=== PATIENT | female | born 1945 | race Caucasian/White ===

== ENCOUNTER 2016-07-06 12:27 | Observation (INO) | payer MEDICARE ==
[2016-07-06] VITALS (9 sets, daily range): BP systolic 147–219; BP diastolic 77–103; PULSE 85–91; RESP 16–20; TEMP 98–98.4; O2SAT 94–96
[~2016-07-06] VITALS: Ht 160 cm; Wt 74.9 kg
[~2016-07-06 12:27] MED LIST: ACET325S8 PO; ALBU6.7H INH; AMLO5 PO; ASPI325T PO; BUSP5 PO; CYMB60CA PO; FLUT50I NASAL; GLIM4 PO; LISI40TA PO; LORTA5 PO; LOVA20TA PO; MECL25 PO; METF-324 PO; METO100T PO; METO50TA PO; MONT5CHW2 CHEW; NEUR600T PO; PERC10TA27 PO; RIVA20 PO; Z.0.WALKERFRONT
[2016-07-06] MEDS ORDERED: BUSP15TA PO (12:43)
[2016-07-06] MEDS ORDERED: CYMB60CA PO (12:43)
[2016-07-06] MEDS ORDERED: GLIM4TAB PO (12:43)
[2016-07-06] MEDS ORDERED: LOVA10TA PO (12:43)
[2016-07-06] MEDS ORDERED: LISI40TA PO (12:43)
[2016-07-06] MEDS ORDERED: MINO0.1C PO (12:43)
[2016-07-06] MEDS ORDERED: MONT10TA2 PO (12:43)
[2016-07-06] MEDS ORDERED: PERC10TA27 PO (12:43)
[2016-07-06] MEDS ORDERED: METO50TA PO (12:43)
[2016-07-06] MEDS ORDERED: XARE20TA PO (12:43)
[2016-07-06] MEDS ORDERED: GABA300C5 PO (12:43)
--- NOTE | 2016-07-06 12:56 | PD ---
HPI Chief Complaint: Abnormal Results Time Seen by Provider: 12:29 Travel History International Travel<30 days: No Contact w/Intl Traveler<30days: No Traveled to known affect area: No History of Present Illness HPI This 71-year-old female is sent from her skid strapper's office because of high blood sugar and high blood pressure. The patient states that this morning she was extremely lightheaded. She says she was unable to walk straight and was bumping into zelaya. This spell lasted for about half an hour. She does not recall feeling like this before. She has a history of hypertension and is on lisinopril 40 mg daily as well as metoprolol 150 mg daily. She has a history of diabetes and has not tolerated oral medications well. Today she went to the skid strapper to discuss possibly starting insulin. She is not having any chest pain at this time. She does not smoke. She had gone to [facility] month ago because of headaches and had a CAT scan done at that time which she was told was negative. She says that she feels that since that time she's been having some trouble with her speech. PFSH Past Medical History Arthritis: Yes Asthma: Yes Atrial Fibrillation: Yes Cancer: No Cardiac Catheterization: No Cardiovascular Problems: Yes (a-fib) High Cholesterol: Yes Cerebrovascular Accident: Yes (04/2011) Diabetes: Yes Patient Takes Glucophage: No Diminished Hearing: No Endocrine: No Fibromyalgia: Yes Gastrointestinal Disorders: Yes (occas heartburn) GERD: Yes Genitourinary: Yes (OVER ACTIVE BLADDER) Hepatitis: No Hiatal Hernia: No Hypertension: Yes Immune Disorder: Yes (rheumatoid & psoric & osteo arthritis) Musculoskeletal: Yes (arthritis neck and back problems due to arthritis) Neurologic: Yes (tia occ migraines) Psychiatric: No Reproductive: No Respiratory: Yes (asthma) Thyroid Disease: No ?: Not Menopausal: Yes Ovarian Cysts: Yes Past Surgical History Abdominal Surgery: Yes (lap curt) AICD: No Cardiac Surgery: No Cholecystectomy: Yes Coronary Artery Bypass Graft: No Ear Surgery: No Eye Surgery: Yes (CATARACT BOTH EYES FALL 06) Genitourinary Surgery: No Gynecologic Surgery: Yes (hystererctomy) Hysterectomy: Yes Joint Replacement: Yes (Both knees) Neurologic Surgery: Yes Oral Surgery: Yes (tonsillectomy at age 21) Pacemaker: No Thoracic Surgery: No Other Surgery: Yes ( ) Family History Family Myocardial Infarction: No Social History Alcohol Use: No Tobacco Use: No Substance Use: No Allergies-Medications (Allergen,Severity, Reaction): Coded Allergies: Aristocort (Verified Allergy, Severe, ANAPHYLAXIS, 07/06/16) anaphylaxis Cephalosporins (Verified Allergy, Severe, ANAPHYLAXIS, 07/06/16) anaphylaxis Corticosteroids (Verified Allergy, Severe, ANAPHYLAXIS, 07/06/16) anaphylaxis Decadron (Verified Allergy, Severe, ANAPHYLAXIS, 07/06/16) unknown Keflex (Verified Allergy, Severe, ANAPHYLAXIS, 07/06/16) anaphylaxis Lyrica (Verified Allergy, Severe, goes blind, 07/06/16) Aspirin (Verified Allergy, Mild, GI UPSET, 07/06/16) gi upset Contrast Media (Unverified Allergy, Mild, Itching, 07/06/16) has to be pre-medicated first Iodine (Verified Allergy, Mild, Itching, 07/06/16) topical iodine causes itching Pork (Verified Allergy, Mild, Itching, 07/06/16) *MDRO Multi-Drug Resistant Organism (Verified Adverse Reaction, Unknown, ) MRSA PCR Screen positive 03/28/15. Uncoded Allergies: INJECTABLE STEROIDS (Allergy, Severe, Anaphylaxis, 02/03/06) Reported Meds & Prescriptions Reported Meds & Active Scripts Active Reported Singulair (Montelukast Sodium) 10 Mg Tab 10 Mg PO HS Percocet (Oxycodone-Acetaminophen) 10-325 mg Tab 1 Tab PO Q6H PRN Cymbalta DR (Duloxetine HCl) 60 Mg Capdr 60 Mg PO DAILY Xarelto (Rivaroxaban) 20 Mg Tab 20 Mg PO DAILY Lovastatin 10 Mg Tab 10 Mg PO HS Metoprolol Tartrate 50 Mg Tab 50 Mg PO BID Gabapentin 300 Mg Cap 900 Mg PO BID Buspirone (Buspirone HCl) 15 Mg Tab 15 Mg PO DAILY Lisinopril 40 Mg Tab 40 Mg PO DAILY Glimepiride 4 Mg Tab 4 Mg PO HS Take with breakfast or first main meal Minocin (Minocycline HCl) 50 Mg Cap 50 Mg PO DAILY Review of Systems General / Constitutional: No: Fever, Chills Eyes: No: Diploplia, Blurred Vision HENT: Positive: Headaches, Lightheadedness Cardiovascular: No: Chest Pain or Discomfort, Palpitations Respiratory: No: Cough, Shortness of Breath Gastrointestinal: No: Vomiting, Diarrhea Genitourinary: No: Urgency, Frequency Musculoskeletal: No: Myalgias, Arthralgias Skin: No Itching, No Dryness Neurologic: Positive: Weakness, Dizziness, Coordination Problem, No: Change in Mentation Endocrine: No: Polyuria Hematologic/Lymphatic: Positive: Easy Bruising Physical Exam Narrative GENERAL: Well-developed female SKIN: Warm and dry. HEAD: Atraumatic. Normocephalic. EYES: Pupils equal and round. No scleral icterus. No injection or drainage. ENT: No nasal bleeding or discharge. Mucous membranes pink and moist. NECK: Trachea midline. No JVD. CARDIOVASCULAR: Irregular rate and rhythm. No murmur appreciated. RESPIRATORY: No accessory muscle use. Clear to auscultation. Breath sounds equal bilaterally. GASTROINTESTINAL: Abdomen soft, non-tender, nondistended. Hepatic and splenic margins not palpable. MUSCULOSKELETAL: No obvious deformities. No clubbing. No cyanosis. No edema. NEUROLOGICAL: Awake and alert. No obvious cranial nerve deficits. Motor grossly within normal limits. Normal speech. PSYCHIATRIC: Appropriate mood and affect; insight and judgment normal. Data Data Last Documented VS Vital Signs Date Time Temp Pulse Resp B/P Pulse Ox O2 Delivery O2 Flow Rate FiO2 07/06/16 12:35 98.4 91 18 208/98 95 Orders Electrocardiogram (07/06/16 12:49) Complete Blood Count With Diff (07/06/16 12:49) Basic Metabolic Panel (Bmp) (07/06/16 12:49) Troponin I (07/06/16 12:49) Urinalysis - C+S If Indicated (07/06/16 12:49) Magnesium (Mg) (07/06/16 12:49) Insulin Human Regular Inj (Novolin R Inj (07/06/16 13:00) Ct Brain W/O Iv Contrast(Rout) (07/06/16 12:53) Labs Laboratory Tests Test 07/06/16 13:12 White Blood Count 9.7 TH/MM3 Red Blood Count 5.25 MIL/MM3 Hemoglobin 14.5 GM/DL Hematocrit 45.0 % Mean Corpuscular Volume 85.6 FL Mean Corpuscular Hemoglobin 27.7 PG Mean Corpuscular Hemoglobin 32.3 % Concent Red Cell Distribution Width 15.8 % Platelet Count 263 TH/MM3 Mean Platelet Volume 7.3 FL Neutrophils (%) (Auto) 80.4 % Lymphocytes (%) (Auto) 11.8 % Monocytes (%) (Auto) 4.2 % Eosinophils (%) (Auto) 3.2 % Basophils (%) (Auto) 0.4 % Neutrophils # (Auto) 7.9 TH/MM3 Lymphocytes # (Auto) 1.1 TH/MM3 Monocytes # (Auto) 0.4 TH/MM3 Eosinophils # (Auto) 0.3 TH/MM3 Basophils # (Auto) 0.0 TH/MM3 CBC Comment DIFF FINAL Differential Comment Urine pH 6.0 Urine Protein 100 mg/dL Urine Glucose (UA) 500 mg/dL Urine Ketones TRACE mg/dL Urine Occult Blood SMALL Urine Nitrite NEG Urine Bilirubin NEG Urine Leukocyte Esterase NEG Sodium Level 139 MEQ/L Potassium Level 3.5 MEQ/L Chloride Level 101 MEQ/L Carbon Dioxide Level 31.0 MEQ/L Anion Gap 7 MEQ/L Blood Urea Nitrogen 8 MG/DL Creatinine 0.85 MG/DL Estimat Glomerular Filtration 66 ML/MIN Rate Random Glucose 292 MG/DL Calcium Level 8.9 MG/DL Magnesium Level 2.1 MG/DL Troponin I LESS THAN 0.02 NG/ML MDM Medical Decision Making Medical Screen Exam Complete: Yes Emergency Medical Condition: Yes Medical Record Reviewed: Yes Differential Diagnosis Differential includes hypertension, hyperglycemia, TIA Narrative Course Patient had an episode this morning that lasted about a half an hour where she was very lightheaded and was unable to walk straight. This may have represented a TIA. Blood pressure is elevated as well as blood sugar. She indicates aspirin as an allergy. It causes her severe indigestion she says I have not given aspirin in view of this. 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
[2016-07-06] MEDS ORDERED: INSULIN HUMAN REGULAR 1,000 UNITS/10 ML VIAL SQ ONE (13:00)
[2016-07-06 13:22] LABS: AUTOMATED NEUTROPHIL # 7.9 TH/MM3 (1.8-7.7); BASOPHIL % 0.4 % (0.0-2.0); EOSINOPHIL # 0.3 TH/MM3 (0-0.4); EOSINOPHIL % 3.2 % (0.0-4.0); HEMO FLAGS DIFF FINAL; LYMPH % 11.8 % (9.0-44.0); LYMPHOCYTE # 1.1 TH/MM3 (1.0-4.8); MEAN CELL VOLUME 85.6 FL (80.0-100.0); MEAN CORPUSCULAR HEMOGLOBIN 27.7 PG (27.0-34.0); MEAN CORPUSCULAR HGB CONC 32.3 % (32.0-36.0); MONO % 4.2 % (0.0-8.0); NEUT % 80.4 % (16.0-70.0); PLATELET COUNT 263 TH/MM3 (150-450); RED BLOOD COUNT 5.25 MIL/MM3 (4.00-5.30); RED CELL DISTRIBUTION WIDTH 15.8 % (11.6-17.2); WHITE BLOOD COUNT 9.7 TH/MM3 (4.0-11.0)
[2016-07-06 13:28] LABS: CHLORIDE 101 MEQ/L (98-107); POTASSIUM 3.5 MEQ/L (3.5-5.1); SODIUM (NA) 139 MEQ/L (136-145)
[2016-07-06 13:31] LABS: ANION GAP 7 MEQ/L (5-15)
[2016-07-06 13:32] LABS: BLOOD UREA NITROGEN 8 MG/DL (7-18); MAGNESIUM 2.1 MG/DL (1.5-2.5)
[2016-07-06 13:35] LABS: GLOMERULAR FILTRATION RATE 66 ML/MIN (>89)
[2016-07-06 13:37] LABS: BLOOD, URINE SMALL (NEG); GLUCOSE,URINE 500 mg/dL (NEG); KETONE, URINE TRACE mg/dL (NEG); NITRITE,URINE NEG (NEG)
--- NOTE | 2016-07-06 13:37 | RADHPO ---
EXAM DATE/TIME: 07/06/2016 13:19 [facility] COMPARISON: CT BRAIN W/O CONTRAST, December 20, 2014, 18:57. INDICATIONS : Dizziness and unsteady gait. RADIATION DOSE: 59.30 CTDIvol (mGy) MEDICAL HISTORY : Cerebrovascular disease. Hypertension. SURGICAL HISTORY : Cholecystectomy. Hysterectomy.Cataract surgery. Orthopedic surgery. ENCOUNTER: Initial ACUITY: 1 day PAIN SCALE: 0/10 LOCATION: cranial TECHNIQUE: Multiple contiguous axial images were obtained of the head. Using automated exposure control and adj ustment of the mA and/or kV according to patient size, radiation dose was kept as low as reasonably a chievable to obtain optimal diagnostic quality images. FINDINGS: CEREBRUM: The ventricles are normal for age. No evidence of midline shift, mass lesion, hemorrhage or acute in farction. No extra-axial fluid collections are seen. POSTERIOR FOSSA: The cerebellum and brainstem are intact. The 4th ventricle is midline. The cerebellopontine angle i s unremarkable. EXTRACRANIAL: The visualized portion of the orbits is intact. SKULL: The calvaria is intact. No evidence of skull fracture. CONCLUSION: Normal examination for a patient of this age. No significant change has occurred. Jalen Serrano MD on July 06, 2016 at 13:35 Board Certified Radiologist. This report was verified electronically.
[2016-07-06 14:12] LABS: METHOD OF COLLECTION CLEAN CATCH; RBC, URINE 0-3 /hpf (0-3); URINE COLOR YELLOW (YELLW/STRAW); WBC, URINE 0-2 /hpf (0-5)
[2016-07-06 14:13] LABS: COMMENT (UR) CULT NOT INDICATED; CULTURE IF INDICATED CULT NOT INDICATED; SQUAMOUS EPITHELIAL CELL URINE 0-5 /hpf (0-5)
[2016-07-06] MEDS ORDERED: GLUCAGON 1 MG/ML VIAL OTHER PRN (14:15)
[2016-07-06] MEDS ORDERED: ONDANSETRON HCL 4 MG/2 ML VIAL IVP PRN (14:15)
[2016-07-06] MEDS ORDERED: MECLIZINE HCL 25 MG TAB PO ONE (14:15)
[2016-07-06] MEDS ORDERED: SODIUM CHLORIDE 0.9% FLUSH 5 ML FLUSH FLUSH PRN (14:15)
[2016-07-06] MEDS ORDERED: NALOXONE HCL 0.4 MG/ML AMP IV PRN (14:15)
[2016-07-06] MEDS ORDERED: ACETAMINOPHEN 325 MG TAB PO PRN (14:15)
[2016-07-06] MEDS ORDERED: DEXTROSE 50% IN WATER 50 ML VIAL(D50) IV PUSH PRN (14:15)
[2016-07-06] MEDS ORDERED: oxyCODONE/ACETAMINOPHEN 10 MG/325 MG TAB PO PRN (14:30)
[2016-07-06] MEDS ORDERED: cloNIDine HCL 0.1 MG TAB PO ONE (14:30)
[2016-07-06] MEDS ORDERED: ALPRAZolam 0.25 MG TAB PO PRN (14:30)
[2016-07-06] MEDS: SODIUM CHLOR 0.9% 1000 ML INJ 1,000 ML IV SCH (15:32)
--- NOTE | 2016-07-06 16:14 | RADHPO ---
EXAM DATE/TIME: 07/06/2016 16:01 [facility] COMPARISON: CT BRAIN W/O CONTRAST, July 06, 2016, 13:19. INDICATIONS : TIA. Slurred speech. MEDICAL HISTORY : Diabetes mellitus type 2. Hypertension. SURGICAL HISTORY : Cholecystectomy. Total knee replacement, right. ENCOUNTER: Initial ACUITY: 2 day PAIN SCORE: 0/10 LOCATION: cranial TECHNIQUE: Multiplanar, multisequence MRI of the brain was performed without contrast. FINDINGS: CEREBRUM: The ventricles are normal for age. No evidence of midline shift, mass lesion, hemorrhage or acute in farction. No extraaxial fluid collections are seen. The pituitary gland and suprasellar cistern are normal in configuration. WHITE MATTER: Scattered small foci of T2 prolongation in the periventricular and subcortical white matter, nonspeci fic and benign in appearance. POSTERIOR FOSSA: The cerebellum and brainstem are intact. The 4th ventricle is midline. The cerebellopontine angle is unremarkable. The cerebellar tonsils are normal in position. DIFFUSION IMAGING: No focal areas of restricted diffusion are seen. No evidence of acute infarction. EXTRACRANIAL: The visualized portions of the orbits and paranasal sinuses are unremarkable. Minimal occasional flui d in mastoid air cells CONCLUSION: Scattered areas of mild white matter signal abnormality. No acute intracranial findings. Dany Cabral MD on July 06, 2016 at 16:07 Board Certified Radiologist. This report was verified electronically.
[2016-07-06] MEDS: INSULIN ASPART SUPPLEMENTAL SCALE SQ SCH ×2 (16:25→22:00)
[2016-07-06] MEDS: cloNIDine HCL 0.1 MG TAB PO SCH (18:40)
[2016-07-06] MEDS ORDERED: MONTELUKAST SODIUM 10 MG TAB PO SCH (21:00)
[2016-07-06] MEDS ORDERED: PRAVASTATIN SOD 10 MG TAB PO SCH (21:00)
[2016-07-06] MEDS: SODIUM CHLORIDE 0.9% FLUSH 5 ML FLUSH FLUSH SCH (21:00)
[2016-07-06] MEDS: INSULIN DETEMIR 100 UNITS/ML VIAL SQ SCH (21:59)
[2016-07-06] MEDS: MECLIZINE HCL 25 MG TAB PO SCH (22:00)
[2016-07-06] MEDS: GABAPENTIN 300 MG CAP PO SCH (22:00)
[2016-07-06] MEDS: METOPROLOL TARTRATE 50 MG TAB PO SCH (22:01)
[2016-07-07] VITALS: BP 121/68; PULSE 70; RESP 20; TEMP 97.2; O2SAT 91
[2016-07-07] MEDS: SODIUM CHLOR 0.9% 1000 ML INJ 1,000 ML IV SCH ×2 (00:12→11:00)
[2016-07-07 04:00] VITALS: BP 111/65; PULSE 76; RESP 18; TEMP 97.4; O2SAT 91
[2016-07-07] MEDS: INSULIN ASPART SUPPLEMENTAL SCALE SQ SCH ×2 (05:51→13:35)
[2016-07-07] MEDS: cloNIDine HCL 0.1 MG TAB PO SCH ×3 (05:52→13:34)
[2016-07-07] MEDS: MECLIZINE HCL 25 MG TAB PO SCH ×2 (05:52→13:34)
[2016-07-07 06:00] VITALS: BP_SYST 108; BP_SYST 113; BP_SYST 127; BP_DIAS 53; BP_DIAS 60; BP_DIAS 68
[2016-07-07 08:00] VITALS: BP 104/54; PULSE 59; PULSE 67; RESP 18; TEMP 97.8; O2SAT 95
[2016-07-07] MEDS: GABAPENTIN 300 MG CAP PO SCH (08:57)
[2016-07-07] MEDS: METOPROLOL TARTRATE 50 MG TAB PO SCH (08:57)
[2016-07-07] MEDS: busPIRone HCL 5 MG TAB PO SCH ×2 (08:57→09:00)
[2016-07-07] MEDS: SODIUM CHLORIDE 0.9% FLUSH 5 ML FLUSH FLUSH SCH (08:58)
[2016-07-07] MEDS: INSULIN DETEMIR 100 UNITS/ML VIAL SQ SCH (08:58)
[2016-07-07] MEDS ORDERED: MINOCYCLINE HCL 50 MG PO SCH (09:00)
[2016-07-07] MEDS ORDERED: DULoxetine HCl DR 60 MG CAP PO SCH (09:00)
[2016-07-07] MEDS ORDERED: RIVAROXABAN 20 MG TAB PO SCH (09:00)
[2016-07-07] MEDS ORDERED: MINOCYCLINE HCL 50 MG CAP PO SCH (09:00)
[2016-07-07] MEDS ORDERED: LISINOPRIL 20 MG TAB PO SCH (09:00)
--- NOTE | 2016-07-07 10:35 | HHI.HP ---
HPI Service [facility] Primary Care Physician Randy Rabago MD Admission Diagnosis Dizziness, uncontrolled hypertension, hyperglycemia Diagnoses: (1) Hyperglycemia due to type 2 diabetes mellitus (2) Hypertension, accelerated (3) Dizziness (4) Atrial fibrillation, chronic Travel History International Travel<30 Days: No Contact w/Intl Traveler <30 Da: No Traveled to Known Affected Are: No History of Present Illness This is a pleasant 71 year-old female with past medical history of type 2 diabetes, atrial fibrillation, hypertension, and psoriatic arthritis who presents to the ER yesterday after being referred by her clinical psychologist for high blood pressure and high blood sugar. The patient was supposed to discuss going on insulin as her diabetes had been out of control. The patient does not check her blood pressure daily but only when she feels her blood pressure is running high. She feels that she can tell when her blood pressure runs high because her face gets flushing. On the evening prior the patient was woken in the middle of the night by her dog was barking. When she got up she felt dizzy as if the room was spinning and her balance was off. She went to let the dog out and then came back in and sat down. Sitting down made the vertigo go away. Moving her head made it worse. Later that morning the symptoms improved and she was able to go see her clinical psychologist. However at the clinical psychologist her blood sugar and blood pressure was high so she was referred to the ER for further evaluation. The patient denies any chest pain, chest pressure, heart palpitations. Denies any slurred speech, paresthesias or unilateral weakness. The patient does take Xarelto for history of A. fib. The patient states today that the dizziness has resolved. Her blood pressure is normotensive. She was started on Levemir last night with improvement of her bedside glucose. The patient states she would like to learn how to inject insulin. Review of Systems Except as stated in HPI: all other systems reviewed are Neg Past Family Social History Past Medical History Type 2 diabetes Hypertension Atrial fibrillation Peripheral neuropathy Chronic low back pain Psoriatic arthritis Reported Medications Allergies Coded Allergies Type Severity Reaction Last Updated Verified Aristocort Allergy Severe ANAPHYLAXIS 2/20/17 Yes Cephalosporins Allergy Severe ANAPHYLAXIS 07/06/16 Yes Corticosteroids Allergy Severe ANAPHYLAXIS 07/06/16 Yes Decadron Allergy Severe ANAPHYLAXIS 07/06/16 Yes Keflex Allergy Severe ANAPHYLAXIS 07/06/16 Yes Lyrica Allergy Severe goes blind 07/06/16 Yes Aspirin Allergy Mild GI UPSET 07/06/16 Yes Contrast Media Allergy Mild Itching 07/06/16 No Iodine Allergy Mild Itching 07/06/16 Yes Pork Allergy Mild Itching 07/06/16 Yes *MDRO Multi-Drug Resistant Organism Adverse Reaction Unknown 07/07/16 Yes Uncoded Allergies Type Severity Reaction Last Updated Verified INJECTABLE STEROIDS Allergy Severe Anaphylaxis 02/03/06 Active Scripts Medications Dose Route/Sig Days Date Category Dose Instructions Singulair (Montelukast Sodium) 10 Mg Tab 10 Mg PO HS 07/06/16 Reported Percocet (Oxycodone-Acetaminophen) 10-325 mg Tab 1 Tab PO Q6H PRN 07/06/[address] (Duloxetine HCl) 60 Mg Capdr 60 Mg PO DAILY 07/06/16 Reported Xarelto (Rivaroxaban) 20 Mg Tab 20 Mg PO DAILY 07/06/16 Reported Lovastatin 10 Mg Tab 10 Mg PO HS 07/06/16 Reported Metoprolol Tartrate 50 Mg Tab 50 Mg PO BID 07/06/16 Reported Gabapentin 300 Mg Cap 900 Mg PO BID 07/06/16 Reported Buspirone (Buspirone HCl) 15 Mg Tab 15 Mg PO DAILY 07/06/16 Reported Lisinopril 40 Mg Tab 40 Mg PO DAILY 07/06/16 Reported Glimepiride 4 Mg Tab 4 Mg PO HS 07/06/16 Reported Take with breakfast or first main meal Minocin (Minocycline HCl) 50 Mg Cap 50 Mg PO DAILY 07/06/16 Reported Allergies: Coded Allergies: Aristocort (Verified Allergy, Severe, ANAPHYLAXIS, 07/06/16) anaphylaxis Cephalosporins (Verified Allergy, Severe, ANAPHYLAXIS, 07/06/16) anaphylaxis Corticosteroids (Verified Allergy, Severe, ANAPHYLAXIS, 07/06/16) anaphylaxis Decadron (Verified Allergy, Severe, ANAPHYLAXIS, 07/06/16) unknown Keflex (Verified Allergy, Severe, ANAPHYLAXIS, 07/06/16) anaphylaxis Lyrica (Verified Allergy, Severe, goes blind, 07/06/16) Aspirin (Verified Allergy, Mild, GI UPSET, 07/06/16) gi upset Contrast Media (Unverified Allergy, Mild, Itching, 07/06/16) has to be pre-medicated first Iodine (Verified Allergy, Mild, Itching, 07/06/16) topical iodine causes itching Pork (Verified Allergy, Mild, Itching, 07/06/16) *MDRO Multi-Drug Resistant Organism (Verified Adverse Reaction, Unknown, ) MRSA PCR Screen POSITIVE - 03/28/15 Uncoded Allergies: INJECTABLE STEROIDS (Allergy, Severe, Anaphylaxis, 02/03/06) Family History Reviewed and noncontributory Social History No alcohol tobacco or drug use. Physical Exam Vital Signs Vital Signs Date Time Temp Pulse Resp B/P Pulse Ox O2 Delivery O2 Flow Rate FiO2 07/07/16 08:00 97.8 59 18 104/54 95 07/07/16 06:00 127/68 108/60 113/53 07/07/16 04:00 97.4 76 18 111/65 91 07/07/16 00:00 97.2 70 20 121/68 91 07/06/16 20:53 85 07/06/16 20:00 98.0 86 20 147/77 94 07/06/16 18:00 98.4 88 20 186/92 96 07/06/16 18:00 177/89 07/06/16 15:10 88 197/96 07/06/16 14:27 85 200/95 89 191/92 07/06/16 14:25 88 16 191/92 95 07/06/16 14:20 86 200/95 07/06/16 14:11 219/103 07/06/16 12:35 98.4 91 18 208/98 95 Physical Exam GENERAL: Well-nourished, well-developed pleasant obese female patient. SKIN: Warm and dry. HEAD: Normocephalic. EYES: No scleral icterus. No injection or drainage. NECK: Supple, trachea midline. No JVD or lymphadenopathy. CARDIOVASCULAR: Regular rate and rhythm without murmurs, gallops, or rubs. RESPIRATORY: Breath sounds equal and clear to auscultation bilaterally. No accessory muscle use. GASTROINTESTINAL: Abdomen soft, non-tender, nondistended. EXTREMITIES: No cyanosis, or edema. NEUROLOGICAL: Awake, alert, and oriented x 3. CN 2-12 intact. Normal speech. Face symmetric. 5/5 strength in all muscle groups. Laboratory Laboratory Tests Test 07/06/16 13:12 White Blood Count 9.7 Red Blood Count 5.25 Hemoglobin 14.5 Hematocrit 45.0 Mean Corpuscular Volume 85.6 Mean Corpuscular Hemoglobin 27.7 Mean Corpuscular Hemoglobin 32.3 Concent Red Cell Distribution Width 15.8 Platelet Count 263 Mean Platelet Volume 7.3 Neutrophils (%) (Auto) 80.4 Lymphocytes (%) (Auto) 11.8 Monocytes (%) (Auto) 4.2 Eosinophils (%) (Auto) 3.2 Basophils (%) (Auto) 0.4 Neutrophils # (Auto) 7.9 Lymphocytes # (Auto) 1.1 Monocytes # (Auto) 0.4 Eosinophils # (Auto) 0.3 Basophils # (Auto) 0.0 CBC Comment DIFF FINAL Differential Comment Urine Collection Type CLEAN CATCH Urine Color YELLOW Urine Turbidity CLEAR Urine pH 6.0 Urine Specific [place]field 1.026 Urine Protein 100 Urine Glucose (UA) 500 Urine Ketones TRACE Urine Occult Blood SMALL Urine Nitrite NEG Urine Bilirubin NEG Urine Leukocyte Esterase NEG Urine RBC 0-3 Urine WBC 0-2 Urine Squamous Epithelial 0-5 Cells Microscopic Urinalysis Comment CULT NOT INDICATED Urine Collection Time 1310 Sodium Level 139 Potassium Level 3.5 Chloride Level 101 Carbon Dioxide Level 31.0 Anion Gap 7 Blood Urea Nitrogen 8 Creatinine 0.85 Estimat Glomerular Filtration 66 Rate Random Glucose 292 Calcium Level 8.9 Magnesium Level 2.1 Troponin I LESS THAN 0.02 Result Diagram: 07/06/16 1312 07/06/16 1312 Imaging Last Impressions Head CT 07/06/16 1253 Signed Impressions: Service Date/Time: Wednesday, July 06, 2016 13:19 - CONCLUSION: Normal examination for a patient of this age. No significant change has occurred. Jalen Serrano MD Brain MRI 07/06/16 0000 Signed Impressions: Service Date/Time: Wednesday, July 06, 2016 16:01 - CONCLUSION: Scattered areas of mild white matter signal abnormality. No acute intracranial findings. Dany Cabral MD Assessment and Plan Assessment and Plan -Transient episode of vertigo, now resolved. MRI brain negative, head CT negative. Doppler carotid ultrasound pending. No other symptoms to suggest TIA. She is already on Xarelto for A. fib. -Type 2 diabetes, uncontrolled with hyperglycemia. She has been started on Levemir with improvement of her glucose. We will do diabetic teaching. Prescribe Levemir discharge. Follow-up with primary care physician next week which she already has an appointment. The patient informed to check her blood sugar at least 3 times a day, and always before taking the insulin. I will consult a home health care nurse to visit her at home to ensure that she is using her insulin accurately. -Hypertension, accelerated. Blood pressure now improved with the addition of clonidine. The patient used to take hydrochlorothiazide and tolerates this well. We will start her at 12.5 mg daily. Prescribe her clonidine to be used as needed when her systolic blood pressures greater than 160. The patient is encouraged to check her blood pressure daily. -Atrial fibrillation - continue metoprolol and Xarelto. The patient may be discharged home this afternoon after diabetic teaching with follow-up with her primary care physician. Shabnam Villegas MD Jul 07, 2016 10:35
--- NOTE | 2016-07-07 10:42 | HHI.FF ---
Face to Face Verification Diagnosis: (1) TIA (transient ischemic attack) (2) DM (diabetes mellitus) (3) Atrial fibrillation, chronic (4) Hypertension Home Health Nursing Order: Medical education Signs/symptoms of disease process Diabetic education Nursing assessment with vital signs I have seen patient Iva Ibanez on 07/07/16. My clinical findings support the need for the requested home health care services because: Need for psychosocial assistance Infection w/ risk of complications I certify that my clinical findings support that this patient is homebound because: Unsteady gait/balance Need for psychosocial assistance Shabnam Villegas MD Jul 07, 2016 10:42
[2016-07-07 12:00] VITALS: BP 127/75; PULSE 67; RESP 18; TEMP 98.7; O2SAT 93
[2016-07-07] MEDS ORDERED: LEVEMIR SQ (14:38)
[2016-07-07] MEDS ORDERED: HYDR12.57 PO (14:38)
[2016-07-07] MEDS ORDERED: CLON.1 PO (14:38)
--- NOTE | 2016-07-07 15:16 | RADHPO ---
EXAM DATE/TIME: 07/07/2016 12:40 [facility] COMPARISON: CTA CAROTID ARTERIES W 3D RECON, May 06, 2011, 15:19. INDICATIONS : Transient ischemic attack. MEDICAL HISTORY : Hypertension. Hypercholesterolemia. Rheumatoid arthritis. Bilateral neuropathy - feet. A-Fib. Stroke. Asthma. Uterine fibroids. Over active bladder. Osteoarthritis. Fibromyalgia. Ovarian cysts. Measles . Diabetes. MRSA 2014. SURGICAL HISTORY : Tonsillectomy. Appendectomy. Cholecystectomy. Bilateral eye lens implants. Hysterectomy. Right carpal tunnel release. Bilateral total knee replacement. ENCOUNTER: Initial ACUITY: 1 day PAIN SCORE: 0/10 LOCATION: Bilateral neck PEAK SYSTOLIC VELOCITIES (cm/sec): ICA/CCA RATIO: Right: 2.1 Left: 3.9 ICA: Right: 122 Left: 239 CCA: Right: 59 Left: 61 ECA: Right: 98 Left: 167 VERTEBRAL: Right: 46 antegrade Left: 52 antegrade Elevated flow velocities and ICA/CCA ratios have been found to correlate with increased degrees of vessel stenosis, calculated as percentage of diameter relative to a normal segment of distal ICA/CCA FINDINGS: RIGHT CAROTID: Mild eccentric stenosis with slight flow velocity acceleration. Degree of stenosis estimated at less than 50%. LEFT CAROTID: Bifurcation stenosis with moderate flow velocity acceleration and suspected high-grade stenosis. VERTEBRAL ARTERIES: Antegrade flow is seen in both vertebral arteries. MISCELLANEOUS: None. CONCLUSION: Suspect high-grade left carotid bifurcation stenosis. Recommend further evaluation with CTA examinati on of the arch and carotids. Dany Cabral MD on July 07, 2016 at 15:10 Board Certified Radiologist. This report was verified electronically.
--- NOTE | 2016-07-07 16:37 | EKG ---
Date Performed: 07/06/2016 Time Performed: 12:54:26 PTAGE: 71 years EKG: Atrial fibrillation Since previous tracing, no significant change noted Abnormal ECG PREVIOUS TRACING : 03/14/2015 11.16 DOCTOR: Mil March Interpretating Date/Time 07/07/2016 16:36:39
== END 2016-07-07 16:20 | disposition home health service (06) ==
LOC: PHED 12:27 → PHEDA 14:20 → PH3A 18:01
PROVIDERS: ADMIT Family Medicine; ATTEND Family Medicine
DX: I10 Essential (primary) hypertension (principal); G45.0 Vertebro-basilar artery syndrome; R42 Dizziness and giddiness; R26.2 Difficulty in walking, not elsewhere classified; J45.909 Unspecified asthma, uncomplicated; E78.00 Pure hypercholesterolemia, unspecified; Z86.73 Personal history of transient ischemic attack (TIA), and cerebral infarction without residual deficits; M79.7 Fibromyalgia; R12 Heartburn; K21.9 Gastro-esophageal reflux disease without esophagitis; N32.81 Overactive bladder; M19.90 Unspecified osteoarthritis, unspecified site; Z79.84 Long term (current) use of oral hypoglycemic drugs; Z79.899 Other long term (current) drug therapy; I48.2 Chronic atrial fibrillation; G62.9 Polyneuropathy, unspecified; M54.5 Low back pain; L40.50 Arthropathic psoriasis, unspecified; Z79.01 Long term (current) use of anticoagulants; R94.31 Abnormal electrocardiogram [ECG] [EKG]
CPT/HCPCS: 70450; 70551; 80048; 81001; 82948; 83735; 84484; 85025; 93005; 93880; 96372; 97161; 99285; G0378; G8987; G8988; J1815; J7030

== ENCOUNTER 2016-12-29 18:12 | Inpatient (IN) | payer MEDICARE ==
[2016-12-29] VITALS (12 sets, daily range): BP systolic 139–195; BP diastolic 59–94; PULSE 94–153; RESP 16–23; TEMP 98.2–103.1; O2SAT 92–100
[~2016-12-29] VITALS: Ht 157.5 cm; Wt 85.0 kg
[~2016-12-29 18:12] MED LIST changes: -ACET325S8 PO; -ALBU6.7H INH; -AMLO5 PO; -ASPI325T PO; +BUSP15TA PO; -BUSP5 PO; +CLON.1 PO; -FLUT50I NASAL; +GABA300C5 PO; -GLIM4 PO; +HYDR12.57 PO; +LEVEMIR SQ; -LORTA5 PO; +LOVA10TA PO; -LOVA20TA PO; -MECL25 PO; -METF-324 PO; -METO100T PO; +MINO0.1C PO; +MONT10TA2 PO; -MONT5CHW2 CHEW; -NEUR600T PO; -RIVA20 PO; +XARE20TA PO; -Z.0.WALKERFRONT
[2016-12-29] MEDS ORDERED: SODIUM CHLOR 0.9% 1000 ML INJ 1,000 ML IV ONE (18:32)
[2016-12-29] MEDS ORDERED: SODIUM CHLOR 0.9% 1000 ML INJ 800 ML IV ONE (18:32)
[2016-12-29] MEDS ORDERED: PIPERACIL-TAZO 4.5 GM PREMIX 100 ML IV ONE (18:45)
[2016-12-29] MEDS ORDERED: VANCOMYCIN INJ 1,000 MG in SODIUM CHLOR 0.9% 250 ML INJ 250 ML IV ONE (18:45)
[2016-12-29] MEDS ORDERED: ACETAMINOPHEN 325 MG TAB PO ONE (18:45)
--- NOTE | 2016-12-29 18:48 | PD ---
HPI Chief Complaint: Fever Time Seen by Provider: 18:26 Travel History International Travel<30 days: No Contact w/Intl Traveler<30days: No Traveled to known affect area: No History of Present Illness HPI 71-year-old female who apparently drove herself to the emergency department, was found in the parking lot outside by security altered/confused. Patient was immediately brought into an exam room and was found to be tachycardic and febrile with an oral temp of 103F. She tells me she is in the hospital, but cannot tell me why she is here. She denies having pain anywhere. PFSH Past Medical History Arthritis: Yes Asthma: Yes Atrial Fibrillation: Yes Heart Rhythm Problems: Yes (AFIB) Cancer: No Cardiac Catheterization: No Cardiovascular Problems: Yes High Cholesterol: Yes Cerebrovascular Accident: Yes (TIA 2010) Diabetes: Yes Diminished Hearing: No Endocrine: Yes Fibromyalgia: Yes Gastrointestinal Disorders: Yes (occas heartburn) GERD: Yes Genitourinary: Yes (OVER ACTIVE BLADDER) Hepatitis: No Hiatal Hernia: No Hypertension: Yes Immune Disorder: Yes (rheumatoid & psoric & osteo arthritis) Musculoskeletal: Yes (arthritis neck and back problems due to arthritis) Neurologic: Yes (BL NEUROPATHY FEET) Psychiatric: No Reproductive: Yes (HX FIBROIDS) Respiratory: Yes Migraines: Yes (OCCASIONAL) Thyroid Disease: No Menopausal: Yes Ovarian Cysts: Yes Past Surgical History Abdominal Surgery: Yes (lap curt, APPENDECTOMY) AICD: No Cardiac Surgery: No Cholecystectomy: Yes Coronary Artery Bypass Graft: No Ear Surgery: No Endocrine Surgery: No Eye Surgery: Yes (CATARACT BOTH EYES ) Genitourinary Surgery: No Gynecologic Surgery: Yes (HYSTERECTOMY) Hysterectomy: Yes Joint Replacement: Yes (BL KNEES) Neurologic Surgery: Yes Oral Surgery: Yes (TONSILLECTOMY) Pacemaker: No Thoracic Surgery: No Other Surgery: Yes ( ) Social History Alcohol Use: No Tobacco Use: No Substance Use: No Allergies-Medications (Allergen,Severity, Reaction): Coded Allergies: amcinonide (Unverified Allergy, Severe, ANAPHYLAXIS, 12/29/16) anaphylaxis beclomethasone (Unverified Allergy, Severe, ANAPHYLAXIS, 12/29/16) anaphylaxis betamethasone (Unverified Allergy, Severe, ANAPHYLAXIS, 12/29/16) anaphylaxis cefepime (Unverified Allergy, Severe, ANAPHYLAXIS, 12/29/16) anaphylaxis ceftaroline fosamil (Unverified Allergy, Severe, ANAPHYLAXIS, 12/29/16) anaphylaxis cephalexin (Unverified Allergy, Severe, ANAPHYLAXIS, 12/29/16) anaphylaxis desoximetasone (Unverified Allergy, Severe, ANAPHYLAXIS, 12/29/16) anaphylaxis dexamethasone (Unverified Allergy, Severe, ANAPHYLAXIS, 12/29/16) unknown fludrocortisone (Unverified Allergy, Severe, ANAPHYLAXIS, 12/29/16) anaphylaxis flunisolide (Unverified Allergy, Severe, ANAPHYLAXIS, 12/29/16) anaphylaxis fluocinolone acetonide (Unverified Allergy, Severe, ANAPHYLAXIS, 12/29/16) anaphylaxis fluocinonide (Unverified Allergy, Severe, ANAPHYLAXIS, 12/29/16) anaphylaxis fluorometholone (Unverified Allergy, Severe, ANAPHYLAXIS, 12/29/16) anaphylaxis flurandrenolide (Unverified Allergy, Severe, ANAPHYLAXIS, 12/29/16) anaphylaxis fluticasone (Unverified Allergy, Severe, ANAPHYLAXIS, 12/29/16) anaphylaxis fluticasone furoate (Unverified Allergy, Severe, ANAPHYLAXIS, 12/29/16) anaphylaxis hydrocortisone (Unverified Allergy, Severe, ANAPHYLAXIS, 12/29/16) anaphylaxis methylprednisolone (Unverified Allergy, Severe, ANAPHYLAXIS, 12/29/16) anaphylaxis mometasone furoate (Unverified Allergy, Severe, ANAPHYLAXIS, 12/29/16) anaphylaxis prednisolone (Unverified Allergy, Severe, ANAPHYLAXIS, 12/29/16) anaphylaxis prednisone (Unverified Allergy, Severe, ANAPHYLAXIS, 12/29/16) anaphylaxis pregabalin (Unverified Allergy, Severe, goes blind, 12/29/16) triamcinolone (Unverified Allergy, Severe, ANAPHYLAXIS, 12/29/16) anaphylaxis Pork/Porcine Containing Products (Unverified Allergy, Mild, Itching, ) aspirin (Unverified Allergy, Mild, GI UPSET, 12/29/16) gi upset diatrizoate meglumine (Unverified Allergy, Mild, Itching, 12/29/16) has to be pre-medicated first gadobenic acid (Unverified Allergy, Mild, Itching, 12/29/16) has to be pre-medicated first gadodiamide (Unverified Allergy, Mild, Itching, 12/29/16) has to be pre-medicated first gadoteridol (Unverified Allergy, Mild, Itching, 12/29/16) has to be pre-medicated first iodine (Unverified Allergy, Mild, Itching, 12/29/16) topical iodine causes itching iodixanol (Unverified Allergy, Mild, Itching, 12/29/16) has to be pre-medicated first iohexol (Unverified Allergy, Mild, Itching, 12/29/16) has to be pre-medicated first potassium iodide (Unverified Allergy, Mild, Itching, 12/29/16) topical iodine causes itching povidone-iodine (Unverified Allergy, Mild, Itching, 12/29/16) topical iodine causes itching sodium iodide (Unverified Allergy, Mild, Itching, 12/29/16) topical iodine causes itching sodium iodide (Unverified Allergy, Mild, Itching, 12/29/16) topical iodine causes itching *MDRO Multi-Drug Resistant Organism (Verified Adverse Reaction, Unknown, ) MRSA PCR Screen POSITIVE - 03/28/15 Uncoded Allergies: INJECTABLE STEROIDS (Allergy, Severe, Anaphylaxis, 02/03/06) Reported Meds & Prescriptions Reported Meds & Active Scripts Active Hydrochlorothiazide 12.5 Mg Cap 12.5 Mg PO DAILY Catapres (Clonidine) 0.1 Mg Tab 0.1 Mg PO Q6H PRN Levemir Inj (Insulin Detemir) 1,000 unit/ 10 ML Vial 5 Units SQ Q12HR Reported Metoprolol Tartrate 50 Mg Tab 100 Mg PO HS [qdall AR] 4 Mg PO HS Singulair (Montelukast Sodium) 10 Mg Tab 10 Mg PO HS Percocet (Oxycodone-Acetaminophen) 10-325 mg Tab 1 Tab PO Q6H PRN Cymbalta DR (Duloxetine HCl) 60 Mg Capdr 60 Mg PO DAILY Xarelto (Rivaroxaban) 20 Mg Tab 20 Mg PO DAILY Lovastatin 10 Mg Tab 10 Mg PO HS Metoprolol Tartrate 50 Mg Tab 50 Mg PO DAILY Gabapentin 300 Mg Cap 900 Mg PO BID Buspirone (Buspirone HCl) 15 Mg Tab 15 Mg PO HS Lisinopril 40 Mg Tab 80 Mg PO DAILY Minocin (Minocycline HCl) 50 Mg Cap 50 Mg PO BID Review of Systems Except as stated in HPI: all other systems reviewed are Neg Physical Exam Narrative GENERAL: Well-developed, well-nourished, elderly-appearing female, awake, confused, no apparent distress. SKIN: Focused skin assessment warm/dry. No rash. HEAD: Atraumatic. Normocephalic. EYES: Pupils equal and round. No scleral icterus. No injection or drainage. ENT: Mucous membranes pink and dry. NECK: Trachea midline. No JVD. No nuchal rigidity. CARDIOVASCULAR: Tachycardic, regular. RESPIRATORY: No accessory muscle use. Clear to auscultation. Breath sounds equal bilaterally. GASTROINTESTINAL: Abdomen soft, non-tender, nondistended. MUSCULOSKELETAL: No obvious deformities. No clubbing. No cyanosis. No edema. NEUROLOGICAL: Awake and alert. No obvious cranial nerve deficits. Motor grossly within normal limits. Normal speech. No focal deficits. PSYCHIATRIC: Confused. Data Data Last Documented VS Vital Signs Date Time Temp Pulse Resp B/P Pulse Ox O2 Delivery O2 Flow Rate FiO2 12/29/16 20:33 110 20 147/71 98 Room Air 12/29/16 19:21 2 12/29/16 18:59 103.1 Orders Electrocardiogram (12/29/16 18:32) Complete Blood Count With Diff (12/29/16 18:32) Comprehensive Metabolic Panel (12/29/16 18:32) Prothrombin Time / Inr (Pt) (12/29/16 18:32) Act Partial Throm Time (Ptt) (12/29/16 18:32) Lactic Acid Sepsis Protocol (12/29/16 18:32) Ckmb (Isoenzyme) Profile (12/29/16 18:32) Troponin I (12/29/16 18:32) Urinalysis - C+S If Indicated (12/29/16 18:32) Influenzae A/B Antigen (12/29/16 18:32) Blood Culture (12/29/16 18:32) Chest, Single Ap (12/29/16 18:32) Blood Glucose (12/29/16 18:32) Ecg Monitoring (12/29/16 18:32) Iv Access Insert/Monitor (12/29/16 18:32) Oximetry (12/29/16 18:32) Oxygen Administration (12/29/16 18:32) Sodium Chlor 0.9% 1000 Ml Inj (Ns 1000 M (12/29/16 18:32) Sodium Chlor 0.9% 1000 Ml Inj (Ns 1000 M (12/29/16 18:32) Cath For Specimen (12/29/16 18:32) Acetaminophen (Tylenol) (12/29/16 18:45) Piperacil-Tazo 4.5 Gm Premix (Zosyn 4.5 (12/29/16 18:45) Vancomycin Inj (Vancomycin Inj) (12/29/16 18:45) Diltiazem Inj (Cardizem Inj) (12/29/16 19:00) Pelvis, Ap Only (Routine) (12/29/16 ) CKMB (12/29/16 18:40) CKMB% (12/29/16 18:40) B-Type Natriuretic Peptide (12/29/16 19:41) Resp Bipap / Cpap Non Invas Vt (12/29/16 ) Urinary Catheter Insert/Apply (12/29/16 20:00) Labetalol Inj (Trandate Inj) (12/29/16 20:45) Ct Brain W/O Iv Contrast(Rout) (12/29/16 ) Admit Order (Ed Use Only) (12/29/16 20:38) Labs Laboratory Tests Test 12/29/16 18:40 White Blood Count 10.7 TH/MM3 Red Blood Count 4.36 MIL/MM3 Hemoglobin 12.7 GM/DL Hematocrit 37.0 % Mean Corpuscular Volume 84.9 FL Mean Corpuscular Hemoglobin 29.1 PG Mean Corpuscular Hemoglobin 34.3 % Concent Red Cell Distribution Width 13.0 % Platelet Count 196 TH/MM3 Mean Platelet Volume 7.8 FL Neutrophils (%) (Auto) 81.0 % Lymphocytes (%) (Auto) 10.1 % Monocytes (%) (Auto) 4.9 % Eosinophils (%) (Auto) 3.4 % Basophils (%) (Auto) 0.6 % Neutrophils # (Auto) 8.6 TH/MM3 Lymphocytes # (Auto) 1.1 TH/MM3 Monocytes # (Auto) 0.5 TH/MM3 Eosinophils # (Auto) 0.4 TH/MM3 Basophils # (Auto) 0.1 TH/MM3 CBC Comment DIFF FINAL Differential Comment Prothrombin Time 13.4 SEC Prothromb Time International 1.2 RATIO Ratio Activated Partial 32.2 SEC Thromboplast Time Sodium Level 136 MEQ/L Potassium Level 4.1 MEQ/L Chloride Level 101 MEQ/L Carbon Dioxide Level 27.6 MEQ/L Anion Gap 7 MEQ/L Blood Urea Nitrogen 17 MG/DL Creatinine 1.10 MG/DL Estimat Glomerular Filtration 49 ML/MIN Rate Random Glucose 163 MG/DL Lactic Acid Level 1.5 mmol/L Calcium Level 8.5 MG/DL Total Bilirubin 1.5 MG/DL Aspartate Amino Transf 18 U/L (AST/SGOT) Alanine Aminotransferase 18 U/L (ALT/SGPT) Alkaline Phosphatase 107 U/L Total Creatine Kinase 104 U/L Creatine Kinase MB 1.3 NG/ML Troponin I LESS THAN 0.02 NG/ML B-Type Natriuretic Peptide 253 PG/ML Total Protein 7.8 GM/DL Albumin 3.2 GM/DL [facility] Medical Decision Making Medical Screen Exam Complete: Yes Emergency Medical Condition: Yes Medical Record Reviewed: Yes Interpretation(s) EKG: A. fib with RVR, rate 145, normal axis, normal intervals, Q waves in anterior leads, no acute ischemic abnormality. Differential Diagnosis Sepsis, encephalopathy, UTI, pneumonia, acute intra-abdominal process less likely, meningitis, encephalitis, acute intracranial abnormality Narrative Course 7:30 PM: After the patient was laid flat for nursing procedure, she became extremely short of breath. She had bibasilar rales. O2 saturation was 85% on 2 L nasal cannula. She was then switched to 100% nonrebreather which improved her O2 saturation to 92%. She was then started on BiPAP for suspected pulmonary edema. 7:50 PM: I was able to contact the patient's son Raimundo Ibanez via phone. He was made aware that the patient is in the hospital and of her condition, and that she will most likely be admitted to the hospital. He states he is on his way. Vital signs reviewed. Patient is in A. fib with RVR. She was given 10 mg of IV Cardizem with moderate improvement in heart rate. CBC shows WBC 10.7, hemoglobin 12.7, hematocrit 37, platelets 196. CMP is essentially unremarkable. Cardiac enzymes are negative. Lactic acid is 1.5. BNP is 253. Chest x-ray: Mild pulmonary edema versus bibasilar pneumonia. Pelvis x-ray: Radiographic appearance of the bony pelvis is within normal limits. Patient was initially written for 2 L normal saline IV because of her presentation of sepsis. After about 1 L and laying flat she became very short of breath and hypoxic with bibasilar rales. She was started on BiPAP and improved significantly. Her source of sepsis is likely pneumonia. Patient has several stated allergies. She was given IV vancomycin and IV Zosyn for empiric antibiotic coverage. After starting the patient on BiPAP her respiratory status significantly improved. Her mental status also significantly improved. There were never any focal neurologic deficits on exam. There is no nuchal rigidity. I do not suspect meningitis or encephalitis. I believe that her initial presentation of confusion was likely encephalopathy secondary to sepsis. 8:35 PM: Case discussed with baby sitter Dr. Boogie. Patient will be admitted to the ICU here. He is requesting head CT prior to admission. He also requested that I give the patient a dose of labetalol to get her systolic to around 160. Prior to receiving labetalol, the patient's repeat blood pressure was 147/70. Critical Care Narrative Aggregate critical care time was 45 minutes. Time to perform other separately billable procedures was not included in the critical care time. My time did not include minutes spent treating any other patients simultaneously or on activities that did not directly contribute to the patient's treatment. The services I provided to this patient were to treat and/or prevent clinically significant deterioration that could result in: , respiratory failure, permanent disability, septic shock I provided critical care services requiring my management, as noted below: Chart data review, documentation time, medication orders and management, vital sign assessments/reviewing monitor data, ordering and reviewing lab tests, ordering and interpreting/reviewing x-rays and diagnostic studies, care of the patient and discussion of the patient with the admitting physicians. Diagnosis Primary Impression: Sepsis Qualified Code: A41.9 - Sepsis, due to unspecified organism Additional Impressions: Pneumonia Qualified Code: J18.9 - Pneumonia of both lower lobes due to infectious organism Hypoxia Atrial fibrillation with RVR Admitting Information Admitting Physician Requests: Admit Manny Hall MD Dec 29, 2016 18:48
[2016-12-29] MEDS ORDERED: DILTIAZEM HCL 25 MG/5 ML VIAL IV ONE (19:00)
[2016-12-29 19:05] LABS: AUTOMATED NEUTROPHIL # 8.6 TH/MM3 (1.8-7.7); BASOPHIL # 0.1 TH/MM3 (0-0.2); BASOPHIL % 0.6 % (0.0-2.0); EOSINOPHIL # 0.4 TH/MM3 (0-0.4); EOSINOPHIL % 3.4 % (0.0-4.0); HEMO FLAGS DIFF FINAL; LYMPH % 10.1 % (9.0-44.0); LYMPHOCYTE # 1.1 TH/MM3 (1.0-4.8); MEAN CELL VOLUME 84.9 FL (80.0-100.0); MEAN CORPUSCULAR HEMOGLOBIN 29.1 PG (27.0-34.0); MEAN CORPUSCULAR HGB CONC 34.3 % (32.0-36.0); MONO % 4.9 % (0.0-8.0); PLATELET COUNT 196 TH/MM3 (150-450); RED BLOOD COUNT 4.36 MIL/MM3 (4.00-5.30); WHITE BLOOD COUNT 10.7 TH/MM3 (4.0-11.0)
[2016-12-29] MEDS ORDERED: METO50TA PO (19:12)
[2016-12-29] MEDS ORDERED: [UNRECOGNIZED DRUG - OTHER] PO (19:12)
[2016-12-29 19:13] LABS: CHLORIDE 101 MEQ/L (98-107); POTASSIUM 4.1 MEQ/L (3.5-5.1); SODIUM (NA) 136 MEQ/L (136-145)
[2016-12-29 19:17] LABS: ANION GAP 7 MEQ/L (5-15); BICARBONATE 27.6 MEQ/L (21.0-32.0); BLOOD UREA NITROGEN 17 MG/DL (7-18)
[2016-12-29 19:20] LABS: ALT (GPT) 18 U/L (10-53); APTT (PATIENT) 32.2 SEC (24.3-30.1); AST (GOT) 18 U/L (15-37); GLOMERULAR FILTRATION RATE 49 ML/MIN (>89); INTERNATIONAL NORMALIZED RATIO 1.2 RATIO; PROTHROMBIN TIME - PATIENT 13.4 SEC (9.8-11.6)
[2016-12-29 19:22] LABS: TOTAL BILIRUBIN ADULT 1.5 MG/DL (0.2-1.0)
[2016-12-29 19:23] LABS: ALKALINE PHOSPHATASE 107 U/L (45-117); CREATINE KINASE 104 U/L (26-192)
[2016-12-29 19:35] LABS: CKMB 1.3 NG/ML (0.5-3.6)
--- NOTE | 2016-12-29 19:36 | RADRPT ---
EXAM DATE/TIME: 12/29/2016 18:47 [facility] COMPARISON: CHEST SINGLE AP, December 20, 2014, 18:34. INDICATIONS : Fever. MEDICAL HISTORY : Hypertension. Diabetes mellitus type II. Hypercholesterolemia. SURGICAL HISTORY : None. ENCOUNTER: Initial ACUITY: 1 day PAIN SCORE: 0/10 LOCATION: Bilateral chest FINDINGS: Diffuse hazy infiltrates seen of both lungs and with suspected very small bilateral pleural effusions . No pneumothorax. Heart size stable, upper limits of normal. CONCLUSION: Mild pulmonary edema versus bibasilar pneumonia. Dany Hannah MD on December 29, 2016 at 19:34 Board Certified Radiologist. This report was verified electronically.
--- NOTE | 2016-12-29 19:46 | RADRPT ---
EXAM DATE/TIME: 12/29/2016 19:26 [facility] COMPARISON: No previous studies available for comparison. INDICATIONS : Pain. No injury. MEDICAL HISTORY : Osteoarthritis. SURGICAL HISTORY : Hysterectomy. Cholecystectomy. Appendectomy. ENCOUNTER: Initial ACUITY: 1 day PAIN SCORE: 2/10 LOCATION: Bilateral pelvis. FINDINGS: A single frontal view of the pelvis demonstrates no evidence of fracture. The bony pelvic ring is in tact. Bony mineralization is normal. The soft tissues are intact. CONCLUSION: Radiographic appearance of the bony pelvis is within normal limits. Dany Hannah MD on December 29, 2016 at 19:44 Board Certified Radiologist. This report was verified electronically.
[2016-12-29 20:42] LABS: BLOOD, URINE SMALL (NEG); GLUCOSE,URINE NEG (NEG); KETONE, URINE NEG (NEG); NITRITE,URINE NEG (NEG)
[2016-12-29] MEDS ORDERED: ACETAMINOPHEN 325 MG TAB PO PRN (20:45)
[2016-12-29] MEDS ORDERED: CHLORHEXIDINE GLUCONATE 2 % 1 PACK (2 CLOTHS) TOP PRN (20:45)
[2016-12-29] MEDS ORDERED: MISCELLANEOUS NURSING INFORMATION XX SCH (20:45)
[2016-12-29] MEDS ORDERED: LABETALOL HCL 100 MG/20 ML VIAL IV PUSH ONE (20:45)
[2016-12-29] MEDS: INSULIN ASPART SUPPLEMENTAL SCALE SQ SCH (20:45)
[2016-12-29] MEDS ORDERED: SODIUM CHLORIDE 0.9% FLUSH 10 ML FLUSH IV FLUSH PRN (20:45)
[2016-12-29 20:58] LABS: COMMENT (UR) CULT NOT INDICATED; CULTURE IF INDICATED CULT NOT INDICATED; RBC, URINE 0-3 /hpf (0-3); SQUAMOUS EPITHELIAL CELL URINE 0-5 /hpf (0-5); URINE COLOR YELLOW (YELLW/STRAW); WBC, URINE 0-2 /hpf (0-5)
[2016-12-29] MEDS ORDERED: cloNIDine HCL 0.1 MG TAB PO PRN (21:00)
[2016-12-29] MEDS ORDERED: niCARdipine INJ 25 MG in SODIUM CHLOR 0.9% 250 ML INJ 250 ML IV SCH (21:00)
[2016-12-29] MEDS ORDERED: METOPROLOL TARTRATE 5 MG/5 ML VIAL IV PUSH ONE (21:00)
--- NOTE | 2016-12-29 21:25 | RADRPT ---
EXAM DATE/TIME: 12/29/2016 21:04 [facility] COMPARISON: CT BRAIN W/O CONTRAST, July 06, 2016, 13:19. INDICATIONS : Altered mental status. RADIATION DOSE: 62.59 CTDIvol (mGy) MEDICAL HISTORY : Hypertension. Diabetes mellitus type 2. Cerebrovascular disease. SURGICAL HISTORY : None. ENCOUNTER: Initial ACUITY: 1 day PAIN SCALE: 0/10 LOCATION: cranial TECHNIQUE: Multiple contiguous axial images were obtained of the head. Using automated exposure control and adj ustment of the mA and/or kV according to patient size, radiation dose was kept as low as reasonably a chievable to obtain optimal diagnostic quality images. DICOM format image data is available electro nically for review and comparison. FINDINGS: CEREBRUM: The ventricles are normal for age. No evidence of midline shift, mass lesion, hemorrhage or acute in farction. No extra-axial fluid collections are seen. POSTERIOR FOSSA: The cerebellum and brainstem are intact. The 4th ventricle is midline. The cerebellopontine angle i s unremarkable. EXTRACRANIAL: The visualized portion of the orbits is intact. SKULL: The calvaria is intact. No evidence of skull fracture. CONCLUSION: No acute intracranial abnormality. Dany Hannah MD on December 29, 2016 at 21:23 Board Certified Radiologist. This report was verified electronically.
[2016-12-29] MEDS ORDERED: PRAVASTATIN SOD 10 MG TAB PO SCH (22:00)
[2016-12-29 22:28] LABS: CREATINE KINASE 92 U/L (26-192)
[2016-12-29] MEDS: SODIUM CHLORIDE 0.9% FLUSH 10 ML FLUSH IV FLUSH SCH (23:57)
[2016-12-30] VITALS (27 sets, daily range): BP systolic 104–176; BP diastolic 54–84; PULSE 70–98; RESP 10–24; TEMP 98.3–98.7; O2SAT 10–100
[2016-12-30] MEDS: MONTELUKAST SODIUM 10 MG TAB PO SCH ×2 (00:18→21:11)
[2016-12-30] MEDS: busPIRone HCL 5 MG TAB PO SCH ×2 (00:19→21:11)
[2016-12-30] MEDS: METOPROLOL TARTRATE 50 MG TAB PO SCH ×3 (00:20→21:11)
[2016-12-30] MEDS: oxyCODONE/ACETAMINOPHEN 10 MG/325 MG TAB PO PRN ×3 (00:21→18:57)
[2016-12-30] MEDS: INSULIN ASPART SUPPLEMENTAL SCALE SQ SCH ×3 (00:24→11:54)
--- NOTE | 2016-12-30 00:27 | EKG ---
Date Performed: 12/29/2016 Time Performed: 18:50:01 PTAGE: 71 years EKG: ATRIAL FIBRILLATION WITH RAPID VENTRICULAR RESPONSE POSSIBLE ANTERIOR MYOCARDIAL INFARCTION ABNORMAL RHYTHM ECG PREVIOUS TRACING : 07/06/2016 12.54 Compared to the previous tracing, rapid ventricular rate no w noted DOCTOR: Yuriy Bojorquez Interpretating Date/Time 12/30/2016 00:27:29
[2016-12-30] MEDS: CHLORHEXIDINE GLUCONATE 2 % 1 PACK (2 CLOTHS) TOP SCH (01:05)
[2016-12-30] MEDS: PIPERACIL-TAZO 3.375 GM PREMIX 50 ML IV SCH ×4 (02:34→21:11)
[2016-12-30 04:39] LABS: POTASSIUM 3.6 MEQ/L (3.5-5.1)
[2016-12-30 05:16] LABS: BICARBONATE 27.9 MEQ/L (21.0-32.0); CALCIUM-PROTEIN CORRECTED 7.9 MG/DL (8.5-10.1)
[2016-12-30 05:24] LABS: AUTOMATED NEUTROPHIL # 6.1 TH/MM3 (1.8-7.7); EOSINOPHIL # 0.3 TH/MM3 (0-0.4); EOSINOPHIL % 3.2 % (0.0-4.0); HEMATOCRIT 33.8 % (35.0-46.0); HEMO FLAGS DIFF FINAL; LYMPH % 14.7 % (9.0-44.0); LYMPHOCYTE # 1.2 TH/MM3 (1.0-4.8); MEAN CELL VOLUME 85.1 FL (80.0-100.0); MEAN CORPUSCULAR HEMOGLOBIN 28.8 PG (27.0-34.0); MEAN CORPUSCULAR HGB CONC 33.9 % (32.0-36.0); MONO % 5.7 % (0.0-8.0); NEUT % 76.4 % (16.0-70.0); PLATELET COUNT 161 TH/MM3 (150-450); RED BLOOD COUNT 3.97 MIL/MM3 (4.00-5.30); RED CELL DISTRIBUTION WIDTH 13.2 % (11.6-17.2); WHITE BLOOD COUNT 8.1 TH/MM3 (4.0-11.0)
[2016-12-30 06:02] LABS: CREATINE KINASE 87 U/L (26-192)
--- NOTE | 2016-12-30 07:11 | HHI.HP ---
[facility] Service Critical Care Medicine Primary Care Physician Randy Rabago MD Admission Diagnosis sepsis, pneumonia, A. fib with RVR, hypoxia Diagnosis: (1) Sepsis Diagnosis: Principal (2) Pneumonia Diagnosis: Principal (3) Pulmonary edema Diagnosis: Principal (4) Metabolic encephalopathy Diagnosis: Principal (5) Atrial fibrillation with RVR Diagnosis: Principal (6) Hypoxia Diagnosis: Principal (7) Hyperglycemia due to type 2 diabetes mellitus Diagnosis: Principal (8) Hypertension, accelerated Diagnosis: Principal (9) Atrial fibrillation, chronic Diagnosis: Secondary (10) DM (diabetes mellitus) Diagnosis: Secondary (11) Psoriatic arthritis Diagnosis: Secondary Chief Complaint: Sepsis Metabolic encephalopathy Pneumonia Travel History International Travel<30 Days: No Contact w/Intl Traveler <30 Da: No Traveled to Known Affected Are: No Sepsis Criteria SIRS Criteria (2 or more): Temp > 100.9 or < 96.8, Heart rate over 90, RR > 20 or PaCO2 < 32 Sepsis Criteria (SIRS+source): Infect source susp/known Criteria Outcome: Meets sepsis criteria History of Present Illness Patient is a 71-year-old white female with past medical history significant for atrial fibrillation on chronic Xarelto, type 2 diabetes, psoriatic arthritis, who presented to the emergency department apparently by herself. She drove herself to the emergency department, was found in the parking lot confused and febrile. Was found to be febrile with an oral temp of 103F. Heart rate was in 150s with atrial fibrillation with RVR. In the ER became extremely short of breath after receiving 2 L normal saline bolus for presumed sepsis. She had bibasilar rales. O2 saturation was 85% on 2 L nasal cannula. She was placed on BiPAP for suspected pulmonary edema. She was given 10 mg of IV Cardizem with improvement in heart rate. Er work up showed WBC 10.7, cardiac enzymes negative , Lactic acid is 1.5. BNP is 253. Chest x-ray- pulmonary edema versus atypical pneumonia. She was given IV vancomycin and IV Zosyn for empiric antibiotic coverage. After starting the patient on BiPAP her respiratory status significantly improved. Her mental status also significantly improved. Clinical suspicion was low for meningitis. CT of the head was negative I evaluated the patient in ICU. She tolerated BiPAP overnight just now taken off BiPAP she is able to converse normally. Chest exam reveals few posterior basilar crackles. Patient is currently on Zosyn. I have added azithromycin for atypical coverage. Also diagnosed with IV Lasix for 3 days continue hydrochlorothiazide. Blood pressure well-controlled heart rate controlled after starting by mouth metoprolol Review of Systems ROS Limitations: Other (as per HPI) Past Family Social History Allergies: Coded Allergies: amcinonide (Unverified Allergy, Severe, ANAPHYLAXIS, 12/29/16) anaphylaxis beclomethasone (Unverified Allergy, Severe, ANAPHYLAXIS, 12/29/16) anaphylaxis betamethasone (Unverified Allergy, Severe, ANAPHYLAXIS, 12/29/16) anaphylaxis cefepime (Unverified Allergy, Severe, ANAPHYLAXIS, 12/29/16) anaphylaxis ceftaroline fosamil (Unverified Allergy, Severe, ANAPHYLAXIS, 12/29/16) anaphylaxis cephalexin (Unverified Allergy, Severe, ANAPHYLAXIS, 12/29/16) anaphylaxis desoximetasone (Unverified Allergy, Severe, ANAPHYLAXIS, 12/29/16) anaphylaxis dexamethasone (Unverified Allergy, Severe, ANAPHYLAXIS, 12/29/16) unknown fludrocortisone (Unverified Allergy, Severe, ANAPHYLAXIS, 12/29/16) anaphylaxis flunisolide (Unverified Allergy, Severe, ANAPHYLAXIS, 12/29/16) anaphylaxis fluocinolone acetonide (Unverified Allergy, Severe, ANAPHYLAXIS, 12/29/16) anaphylaxis fluocinonide (Unverified Allergy, Severe, ANAPHYLAXIS, 12/29/16) anaphylaxis fluorometholone (Unverified Allergy, Severe, ANAPHYLAXIS, 12/29/16) anaphylaxis flurandrenolide (Unverified Allergy, Severe, ANAPHYLAXIS, 12/29/16) anaphylaxis fluticasone (Unverified Allergy, Severe, ANAPHYLAXIS, 12/29/16) anaphylaxis fluticasone furoate (Unverified Allergy, Severe, ANAPHYLAXIS, 12/29/16) anaphylaxis hydrocortisone (Unverified Allergy, Severe, ANAPHYLAXIS, 12/29/16) anaphylaxis methylprednisolone (Unverified Allergy, Severe, ANAPHYLAXIS, 12/29/16) anaphylaxis mometasone furoate (Unverified Allergy, Severe, ANAPHYLAXIS, 12/29/16) anaphylaxis prednisolone (Unverified Allergy, Severe, ANAPHYLAXIS, 12/29/16) anaphylaxis prednisone (Unverified Allergy, Severe, ANAPHYLAXIS, 12/29/16) anaphylaxis pregabalin (Unverified Allergy, Severe, goes blind, 12/29/16) triamcinolone (Unverified Allergy, Severe, ANAPHYLAXIS, 12/29/16) anaphylaxis Pork/Porcine Containing Products (Unverified Allergy, Mild, Itching, ) aspirin (Unverified Allergy, Mild, GI UPSET, 12/29/16) gi upset diatrizoate meglumine (Unverified Allergy, Mild, Itching, 12/29/16) has to be pre-medicated first gadobenic acid (Unverified Allergy, Mild, Itching, 12/29/16) has to be pre-medicated first gadodiamide (Unverified Allergy, Mild, Itching, 12/29/16) has to be pre-medicated first gadoteridol (Unverified Allergy, Mild, Itching, 12/29/16) has to be pre-medicated first iodine (Unverified Allergy, Mild, Itching, 12/29/16) topical iodine causes itching iodixanol (Unverified Allergy, Mild, Itching, 12/29/16) has to be pre-medicated first iohexol (Unverified Allergy, Mild, Itching, 12/29/16) has to be pre-medicated first potassium iodide (Unverified Allergy, Mild, Itching, 12/29/16) topical iodine causes itching povidone-iodine (Unverified Allergy, Mild, Itching, 12/29/16) topical iodine causes itching sodium iodide (Unverified Allergy, Mild, Itching, 12/29/16) topical iodine causes itching sodium iodide (Unverified Allergy, Mild, Itching, 12/29/16) topical iodine causes itching *MDRO Multi-Drug Resistant Organism (Verified Adverse Reaction, Unknown, ) MRSA PCR Screen POSITIVE - 03/28/15 Uncoded Allergies: INJECTABLE STEROIDS (Allergy, Severe, Anaphylaxis, 02/03/06) Past Medical History Chronic atrial fibrillation on Xarelto Type 2 diabetes Hypertension Peripheral neuropathy Chronic low back pain Psoriatic arthritis Past Surgical History Appendectomy Cataract surgery Hysterectomy Bilateral knee surgery Tonsillectomy Reported Medications Hydrochlorothiazide 12.5 Mg Cap 12.5 Mg PO DAILY Catapres (Clonidine) 0.1 Mg Tab 0.1 Mg PO Q6H PRN Levemir Inj (Insulin Detemir) 1,000 unit/ 10 ML Vial 5 Units SQ Q12HR Metoprolol Tartrate 50 Mg Tab 100 Mg PO HS [qdall AR] 4 Mg PO HS Singulair (Montelukast Sodium) 10 Mg Tab 10 Mg PO HS Percocet (Oxycodone-Acetaminophen) 10-325 mg Tab 1 Tab PO Q6H PRN Cymbalta DR (Duloxetine HCl) 60 Mg Capdr 60 Mg PO DAILY Xarelto (Rivaroxaban) 20 Mg Tab 20 Mg PO DAILY Lovastatin 10 Mg Tab 10 Mg PO HS Metoprolol Tartrate 50 Mg Tab 50 Mg PO DAILY Gabapentin 300 Mg Cap 900 Mg PO BID Buspirone (Buspirone HCl) 15 Mg Tab 15 Mg PO HS Lisinopril 40 Mg Tab 80 Mg PO DAILY Minocin (Minocycline HCl) 50 Mg Cap 50 Mg PO BID Active Ordered Medications Reviewed Family History Limited due to BiPAP use Social History No alcohol or tobacco use Physical Exam Vital Signs Vital Signs Date Time Temp Pulse Resp B/P Pulse Ox O2 Delivery O2 Flow Rate FiO2 12/30/16 06:00 70 13 106/57 100 12/30/16 06:00 70 12/30/16 05:20 10 30 12/30/16 05:20 100 Bi-Pap 30 12/30/16 05:00 70 24 115/57 100 12/30/16 04:00 73 12/30/16 04:00 70 10 133/58 100 12/30/16 03:00 98.3 72 13 112/58 100 12/30/16 02:00 74 12/30/16 02:00 74 14 116/55 99 12/30/16 01:00 84 11 140/63 95 12/30/16 01:00 98 Bi-Pap 40 12/30/16 01:00 100 40 12/30/16 00:00 98 18 156/71 100 12/30/16 00:00 98 Nasal Cannula 2.00 12/30/16 00:00 95 12/29/16 23:30 94 23 139/69 100 12/29/16 23:00 100 12/29/16 23:00 99.4 94 16 100 12/29/16 22:57 100 16 153/59 98 12/29/16 22:45 95 Nasal Cannula 3.00 12/29/16 22:35 99 50 8/15/17 21:59 100 20 146/77 100 BiPAP 12/29/16 20:41 98.2 12/29/16 20:33 110 20 147/71 98 Room Air 12/29/16 19:56 100 BiPAP 12/29/16 19:53 BiPAP 12/29/16 19:45 100 50 12/29/16 19:30 90 Non-Rebreather 12/29/16 19:21 94 18 195/91 94 Nasal Cannula 2 12/29/16 18:59 103.1 153 20 186/94 92 12/29/16 18:45 94 Nasal Cannula 2 12/29/16 18:45 94 Nasal Cannula 2 Physical Exam Physical Exam GENERAL: Well-developed, well-nourished, elderly-appearing female, awake, alert on BiPAP SKIN: Warm/dry. Psoriatic rashes on the extremities HEAD: Atraumatic. Normocephalic. EYES: Pupils equal and round. No scleral icterus. No injection or drainage. ENT: Mucous membranes pink and dry. NECK: Trachea midline. No JVD. No nuchal rigidity. CARDIOVASCULAR: Atrial fibrillation rate controlled. No murmurs RESPIRATORY: No accessory muscle use. Very few basilar crackles. Breath sounds equal bilaterally. GASTROINTESTINAL: Abdomen soft, non-tender, nondistended. MUSCULOSKELETAL: No obvious deformities. No clubbing. No cyanosis. No edema. NEUROLOGICAL: Awake and alert. No obvious cranial nerve deficits. Motor grossly within normal limits. PSYCHIATRIC: Confused. Laboratory Laboratory Tests Test 12/29/16 12/29/16 12/29/16 12/30/16 18:40 20:25 21:49 04:10 White Blood Count 10.7 8.1 Red Blood Count 4.36 3.97 Hemoglobin 12.7 11.4 Hematocrit 37.0 33.8 Mean Corpuscular Volume 84.9 85.1 Mean Corpuscular Hemoglobin 29.1 28.8 Mean Corpuscular Hemoglobin 34.3 33.9 Concent Red Cell Distribution Width 13.0 13.2 Platelet Count 196 161 Mean Platelet Volume 7.8 8.0 Neutrophils (%) (Auto) 81.0 76.4 Lymphocytes (%) (Auto) 10.1 14.7 Monocytes (%) (Auto) 4.9 5.7 Eosinophils (%) (Auto) 3.4 3.2 Basophils (%) (Auto) 0.6 0.0 Neutrophils # (Auto) 8.6 6.1 Lymphocytes # (Auto) 1.1 1.2 Monocytes # (Auto) 0.5 0.5 Eosinophils # (Auto) 0.4 0.3 Basophils # (Auto) 0.1 0.0 CBC Comment DIFF FINAL DIFF FINAL Differential Comment Prothrombin Time 13.4 Prothromb Time International 1.2 Ratio Activated Partial 32.2 Thromboplast Time Sodium Level 136 138 Potassium Level 4.1 3.6 Chloride Level 101 104 Carbon Dioxide Level 27.6 27.9 Anion Gap 7 6 Blood Urea Nitrogen 17 16 Creatinine 1.10 1.00 Estimat Glomerular Filtration 49 55 Rate Random Glucose 163 155 Lactic Acid Level 1.5 Calcium Level 8.5 7.4 Total Bilirubin 1.5 2.0 Aspartate Amino Transf 18 24 (AST/SGOT) Alanine Aminotransferase 18 17 (ALT/SGPT) Alkaline Phosphatase 107 81 Total Creatine Kinase 104 92 87 Creatine Kinase MB 1.3 Troponin I LESS THAN 0.02 LESS THAN 0.02 LESS THAN 0.02 B-Type Natriuretic Peptide 253 Total Protein 7.8 6.2 Albumin 3.2 2.5 Urine Color YELLOW Urine Turbidity CLEAR Urine pH 6.0 Urine Specific [place] 1.015 Urine Protein NEG Urine Glucose (UA) NEG Urine Ketones NEG Urine Occult Blood SMALL Urine Nitrite NEG Urine Bilirubin NEG Urine Leukocyte Esterase NEG Urine RBC 0-3 Urine WBC 0-2 Urine Squamous Epithelial 0-5 Cells Microscopic Urinalysis Comment CULT NOT INDICATED Protein Corrected Calcium 7.9 Date/Time Procedure Status Source Growth 12/29/16 19:20 Influenza Types A,B Antigen ([facility]) - Final Complete Nasal Washing NEGATIVE FOR FLU A AND B ANTIGEN.... 12/29/16 18:45 Aerobic Blood Culture Received Blood Peripheral Pending 12/29/16 18:45 Anaerobic Blood Culture Received Blood Peripheral Pending Result Diagram: 12/30/1640912/30/[address] head negative Chest x-ray bilateral infiltrates pulmonary edema versus atypical pneumonia Septic Shock Reassessment Heart: Irregular Lungs: Crackles Skin: Warm Peripheral Pulses: Bounding Right Radial Bounding Left Radial Assessment and Plan Assessment and Plan NEURO: Acute metabolic encephalopathy -Metabolic encephalopathy due to sepsis now resolved -CT of the head negative RESP: Acute hypoxemic respiratory failure Pulmonary edema versus atypical pneumonia -BiPAP when necessary wean to nasal cannula -DuoNeb every 6 hours when necessary -Zosyn and azithromycin to cover for pneumonia CV: Atrial fibrillation with RVR Pulmonary edema -Atrial fibrillation is rate controlled now after administration of metoprolol, received Cardizem bolus in the ED yesterday -Start IV Lasix 40 mg daily for 3 days -Resume home antihypertensives -Resume Xarelto for chronic A. fib GI: -1800 ADA diet. Protonix : -Monitor renal function closely. ID: Sepsis Probable atypical pneumonia -Follow-up on blood urine and sputum cultures, check urine for Legionella and pneumococcal antigen -Continue Zosyn and azithromycin. Received 1 dose of vancomycin in the ED HEME: Chronic Xarelto use - Monitor CBC, CMP, coags ENDO: Type 2 diabetes with hyperglycemia - Sliding-scale insulin and resume home Levemir - Electrolyte Replacement as needed PROPH: - Bilateral lower extremity SCDs. Continue Protonix and Xarelto LINES: - Utilize peripheral IVs Level 3 new admit Consult [facility] to assume care 12/31/16 Code Status Full Problem Qualifiers (1) Sepsis: Qualified Code: A41.9 - Sepsis, due to unspecified organism (2) Pneumonia: Qualified Code: J18.9 - Pneumonia of both lower lobes due to infectious organism (3) DM (diabetes mellitus): Germania Saenz MD Dec 30, 2016 07:11
[2016-12-30] MEDS ORDERED: hydrALAZINE HCL 20 MG/ML VIAL IV PUSH PRN (07:15)
[2016-12-30] MEDS ORDERED: LABETALOL HCL 100 MG/20 ML VIAL IV PUSH PRN (07:15)
[2016-12-30] MEDS ORDERED: ADAL1INJ SQ (07:29)
[2016-12-30] MEDS ORDERED: HYDR25TA5 PO (07:29)
[2016-12-30] MEDS ORDERED: LISI40TA PO (07:29)
[2016-12-30] MEDS ORDERED: LEVEMIR SQ (07:29)
[2016-12-30] MEDS ORDERED: RESP: ALBUTEROL 2.5 MG/IPRATROPIUM 0.5 MG NEB (PRN) NEB (07:30)
[2016-12-30] MEDS: CHLORHEXIDINE 0.12% (ORAL KIT) 15 ML CUP MT SCH ×2 (08:00→20:00)
[2016-12-30] MEDS ORDERED: HYDROCHLOROTHIAZIDE 12.5 MG CAP PO SCH (09:00)
[2016-12-30] MEDS: HYDROCHLOROTHIAZIDE 25 MG TAB PO SCH (09:00)
[2016-12-30] MEDS ORDERED: PANTOPRAZOLE SODIUM 40 MG VIAL IV SCH (09:00)
[2016-12-30] MEDS: DULoxetine HCl DR 60 MG CAP PO SCH (09:10)
[2016-12-30] MEDS: RIVAROXABAN 20 MG TAB PO SCH (09:10)
[2016-12-30] MEDS: AZITHROMYCIN INJ 500 MG in SODIUM CHLOR 0.9% 250 ML INJ 250 ML IV SCH (09:11)
[2016-12-30] MEDS: FUROSEMIDE 40 MG/4 ML VIAL IV PUSH SCH (09:11)
[2016-12-30] MEDS: SODIUM CHLORIDE 0.9% FLUSH 10 ML FLUSH IV FLUSH SCH ×2 (09:11→21:11)
[2016-12-30] MEDS ORDERED: GLUCAGON 1 MG/ML VIAL OTHER PRN (12:30)
[2016-12-30] MEDS ORDERED: DEXTROSE 50% IN WATER 50 ML VIAL(D50) IV PUSH PRN (12:30)
[2016-12-30] MEDS ORDERED: PLEASE DISCONTINUE PREVIOUS SUPPLEMENTAL SCALE INSULIN ORDERS ONE (12:30)
[2016-12-30] MEDS: LOW DOSE INSULIN NOVOLOG SUPPLEMENTAL SCALE SQ SCH ×2 (16:36→21:00)
[2016-12-30] MEDS ORDERED: INSU10IN SQ (16:55)
[2016-12-30] MEDS: MUPIROCIN 2% OINT 1 APPLIC/GM SYR NASAL SCH (21:11)
[2016-12-31] VITALS (19 sets, daily range): BP systolic 122–186; BP diastolic 53–103; PULSE 62–112; RESP 12–27; TEMP 97.4–98.9; O2SAT 91–100
[2016-12-31] MEDS: CHLORHEXIDINE GLUCONATE 2 % 1 PACK (2 CLOTHS) TOP SCH (04:00)
[2016-12-31] MEDS: PIPERACIL-TAZO 3.375 GM PREMIX 50 ML IV SCH ×4 (05:31→20:35)
[2016-12-31] MEDS: LOW DOSE INSULIN NOVOLOG SUPPLEMENTAL SCALE SQ SCH ×4 (07:00→20:37)
[2016-12-31] MEDS: CHLORHEXIDINE 0.12% (ORAL KIT) 15 ML CUP MT SCH ×2 (08:00→20:37)
--- NOTE | 2016-12-31 10:26 | HHI.PR ---
Subjective Remarks Follow-up sepsis/community acquired bacterial pneumonia/metabolic encephalopathy 12/31/16-patient seen and examined, alert and oriented 3, low-grade temp and patient states she's not feeling alright. Denies any chest pain or shortness of breath. Not much of an appetite Objective Vitals Vital Signs Date Time Temp Pulse Resp B/P Pulse Ox O2 Delivery O2 Flow Rate FiO2 12/31/16 08:00 97.8 96 19 164/85 94 12/31/16 08:00 100 Nasal Cannula 2.00 12/31/16 07:00 88 17 153/76 100 12/31/16 06:00 90 19 162/81 99 12/31/16 06:00 86 12/31/16 05:00 84 13 133/65 96 12/31/16 04:00 84 12/31/16 04:00 78 15 134/66 91 12/31/16 03:00 76 13 128/59 98 12/31/16 02:00 84 12/31/16 02:00 78 15 134/66 91 12/31/16 01:00 80 14 141/67 98 12/31/16 00:00 97.6 78 15 131/67 94 12/31/16 00:00 84 12/30/16 23:00 76 14 132/60 98 12/30/16 22:00 84 12/30/16 22:00 84 13 124/55 95 12/30/16 21:00 84 12 104/54 98 12/30/16 20:35 98 Nasal Cannula 2.00 12/30/16 20:00 Nasal Cannula 2.00 12/30/16 20:00 85 12/30/16 20:00 98.6 82 14 113/74 98 12/30/16 19:00 98.6 86 21 176/73 100 12/30/16 18:00 76 14 158/84 100 12/30/16 18:00 76 12/30/16 17:00 80 15 135/70 99 12/30/16 16:00 98.7 78 14 106/59 98 12/30/16 16:00 78 12/30/16 15:00 82 22 115/60 98 12/30/16 14:00 80 12/30/16 14:00 80 13 136/57 100 12/30/16 13:00 82 13 133/58 98 12/30/16 12:00 98.4 86 14 140/65 95 12/30/16 12:00 86 12/30/16 11:00 84 12 118/60 100 I/O 12/30/16 12/30/16 12/30/16 12/31/16 12/31/16 12/31/16 07:00 15:00 23:00 07:00 15:00 23:00 Intake Total 795 ml 600 ml Output Total 325 ml 200 ml 200 ml 200 ml Balance -325 ml 595 ml 400 ml -200 ml Intake Oral 420 ml 600 ml IV Total 375 ml Output Urine Total 325 ml 200 ml 200 ml 200 ml # Bowel Movements 1 Result Diagram: 12/30/16 0410 12/30/16 0410 Imaging Last Impressions Chest X-Ray 12/29/16 1832 Signed Impressions: Service Date/Time: Thursday, December 29, 2016 18:47 - CONCLUSION: Mild pulmonary edema versus bibasilar pneumonia. Dany Hannah MD Pelvis X-Ray 12/29/16 0000 Signed Impressions: Service Date/Time: Thursday, December 29, 2016 19:26 - CONCLUSION: Radiographic appearance of the bony pelvis is within normal limits. Dany Hannah MD Head CT 12/29/16 0000 Signed Impressions: Service Date/Time: Thursday, December 29, 2016 21:04 - CONCLUSION: No acute intracranial abnormality. Dany Hannah MD Objective Remarks GENERAL: NAD SKIN: Warm and dry. HEAD: Normocephalic. EYES: No scleral icterus. No injection or drainage. NECK: Supple, trachea midline. No JVD or lymphadenopathy. CARDIOVASCULAR: Irregular Regular rate and rhythm without murmurs, gallops, or rubs. RESPIRATORY: Breath sounds equal bilaterally. No accessory muscle use. GASTROINTESTINAL: Abdomen soft, non-tender, nondistended. MUSCULOSKELETAL: No cyanosis, or edema. BACK: Nontender without obvious deformity. No CVA tenderness. A/P Problem List: (1) Sepsis ICD Code: A41.9 Status: Acute (2) Pneumonia ICD Code: J18.9 Status: Acute (3) Pulmonary edema ICD Code: J81.1 Status: Resolved (4) Metabolic encephalopathy ICD Code: G93.41 Status: Acute (5) Atrial fibrillation with RVR ICD Code: I48.91 Status: Acute (6) Hypoxia ICD Code: R09.02 Status: Acute (7) Hyperglycemia due to type 2 diabetes mellitus ICD Code: E11.65 Status: Acute (8) Hypertension, accelerated ICD Code: I10 Status: Acute (9) Atrial fibrillation, chronic ICD Code: I48.2 Status: Acute (10) DM (diabetes mellitus) ICD Code: E11.9 Status: Acute (11) Psoriatic arthritis ICD Code: L40.50 Status: Acute Assessment and Plan 71-year-old female with Sepsis: Secondary to pneumonia Now resolved Acute metabolic encephalopathy-resolved Acute hypoxemic respiratory failure-resolved Pulmonary edema versus atypical pneumonia DuoNeb every 6 hours when necessary Continue Zosyn and azithromycin to cover for pneumonia and monitor blood culture Continue Lasix IV 1 more day Atrial fibrillation with RVR Continue home antihypertensives Continue Xarelto for chronic A. fib Type 2 diabetes with hyperglycemia Sliding-scale insulin and continue home Levemir PROPH: - Bilateral lower extremity SCDs. Continue Protonix and Xarelto Discharge Planning Discharge home when medically stable in 1-2 days Problem Qualifiers (1) Sepsis: Qualified Code: A41.9 - Sepsis, due to unspecified organism (2) Pneumonia: Qualified Code: J18.9 - Pneumonia of both lower lobes due to infectious organism (3) DM (diabetes mellitus): Romain Tamayo MD Dec 31, 2016 10:25
[2016-12-31] MEDS: FUROSEMIDE 40 MG/4 ML VIAL IV PUSH SCH (10:49)
[2016-12-31] MEDS: SODIUM CHLORIDE 0.9% FLUSH 10 ML FLUSH IV FLUSH SCH ×2 (10:49→20:36)
[2016-12-31] MEDS: RIVAROXABAN 20 MG TAB PO SCH (10:50)
[2016-12-31] MEDS: HYDROCHLOROTHIAZIDE 25 MG TAB PO SCH (10:50)
[2016-12-31] MEDS: MUPIROCIN 2% OINT 1 APPLIC/GM SYR NASAL SCH ×2 (10:50→20:36)
[2016-12-31] MEDS: METOPROLOL TARTRATE 50 MG TAB PO SCH ×2 (10:50→20:36)
[2016-12-31] MEDS: DULoxetine HCl DR 60 MG CAP PO SCH (10:50)
[2016-12-31] MEDS: AZITHROMYCIN INJ 500 MG in SODIUM CHLOR 0.9% 250 ML INJ 250 ML IV SCH (12:04)
[2016-12-31] MEDS: oxyCODONE/ACETAMINOPHEN 10 MG/325 MG TAB PO PRN ×2 (12:39→20:57)
--- NOTE | 2016-12-31 16:35 | ECHRPT ---
Indication: ASSESS LV FUNCTION CONCLUSIONS Normal left ventricular size. Mild concentric left ventricular hypertrophy. No regional wall motion abnormalities are present. This study was not technically sufficient to allow for evaluation of left ventricular diastolic func tion. The right ventricular size is normal. The left atrial size is tzvb-[id number] dilated. The right atrial size is mildly dilated. Trace mitral valve regurgitation. The aortic valve is not well visualized, however there is good movement. No aortic valve regurgitation. There is mild tricuspid valve regurgitation. There is estimated mild pulmonary hypertension present (range 40-50 mmHg). The pulmonary valve is not well visualized. No pulmonary valve regurgitation. The inferior vena cava (IVC) is normal in size. There is less than 50% respiratory change in dimension of the inferior vena cava (abnormal). A prominent epicardial fat pad is present. BP: 133 / 65 HR: 85 Rhythm: Atrial fibrillation MEASUREMENTS (Male / Female) Normal Values Technical Quality:Technically difficult study 2D ECHO LV Diastolic Diameter PLAX 4.2 cm 4.2 - 5.9 / 3.9 - 5.3 cm LV Systolic Diameter PLAX 3.1 cm IVS Diastolic Thickness 1.3 cm 0.6 - 1.0 / 0.6 - 0.9 cm LVPW Diastolic Thickness 1.3 cm 0.6 - 1.0 / 0.6 - 0.9 cm LV Relative Wall Thickness 0.6 LVOT Diameter 2.0 cm Aortic Root Diameter 2.8 cm LA Systolic Diameter LX 3.2 cm 3.0 - 4.0 / 2.7 - 3.8 cm M-MODE AV Cusp Separation MM 1.8 cm DOPPLER AV Peak Velocity 116.0 cm/s AV Peak Gradient 5.4 mmHg AV Mean Gradient 3.0 mmHg AV Velocity Time Integral 23.0 cm LVOT Peak Velocity 61.1 cm/s LVOT Peak Gradient 1.5 mmHg LVOT Velocity Time Integral 13.7 cm LVOT Cardiac Index 1924.6 cm/minm AV Area Cont Eq vti 1.9 cm AV Area Cont Eq pk 1.7 cm Mitral E Point Velocity 130.0 cm/s LV E' Lateral Velocity 9.0 cm/s Mitral E to LV E' Lateral Ratio 14.5 LV E' Septal Velocity 7.0 cm/s Mitral E to LV E' Septal Ratio 18.5 TR Peak Velocity 312.0 cm/s TR Peak Gradient 38.9 mmHg PV Peak Velocity 83.5 cm/s PV Peak Gradient 2.8 mmHg FINDINGS LEFT VENTRICLE Normal left ventricular size. Mild concentric left ventricular hypertrophy. The left ventricular systolic function is normal with an estimated ejection fraction in the range of 60-65%. No regional wall motion abnormalities are present. This study was not technically sufficient to allow for evaluation of left ventricular diastolic func tion. RIGHT VENTRICLE The right ventricular size is normal. LEFT ATRIUM The left atrial size is qinl-[id number]-oyayycdars dilated. RIGHT ATRIUM The right atrial size is mildly dilated. ATRIAL SEPTUM Normal atrial septal thickness without atrial level shunting by limited color doppler interrogation. AORTA The aortic root and proximal ascending aorta are normal in size on limited imaging. MITRAL VALVE Structurally normal mitral valve. Trace mitral valve regurgitation. AORTIC VALVE The aortic valve is not well visualized, however there is good movement. No aortic valve regurgitation. TRICUSPID VALVE Structurally normal tricuspid valve. There is mild tricuspid valve regurgitation. There is estimated mild pulmonary hypertension present (range 40-50 mmHg). PULMONARY VALVE The pulmonary valve is not well visualized. No pulmonary valve regurgitation. VESSELS The inferior vena cava (IVC) is normal in size. There is less than 50% respiratory change in dimension of the inferior vena cava (abnormal). PERICARDIUM A prominent epicardial fat pad is present. Misael Guzman MD (Electronically Signed) Final Date:31 December 2016 16:33
[2016-12-31] MEDS: busPIRone HCL 5 MG TAB PO SCH (20:36)
[2016-12-31] MEDS: MONTELUKAST SODIUM 10 MG TAB PO SCH (20:36)
[2016-12-31] MEDS: INSULIN DETEMIR 100 UNITS/ML VIAL SQ SCH (20:47)
[2017-01-01] VITALS (8 sets, daily range): BP systolic 130–162; BP diastolic 72–85; PULSE 85–111; RESP 16–18; TEMP 96.6–97.8; O2SAT 91–98
[2017-01-01] MEDS: PIPERACIL-TAZO 3.375 GM PREMIX 50 ML IV SCH ×4 (03:09→22:22)
[2017-01-01] MEDS: CHLORHEXIDINE GLUCONATE 2 % 1 PACK (2 CLOTHS) TOP SCH (04:00)
[2017-01-01] MEDS: LOW DOSE INSULIN NOVOLOG SUPPLEMENTAL SCALE SQ SCH ×4 (06:09→22:26)
[2017-01-01] MEDS: CHLORHEXIDINE 0.12% (ORAL KIT) 15 ML CUP MT SCH ×2 (08:00→20:00)
[2017-01-01] MEDS: AZITHROMYCIN INJ 500 MG in SODIUM CHLOR 0.9% 250 ML INJ 250 ML IV SCH (10:13)
[2017-01-01] MEDS: FUROSEMIDE 40 MG/4 ML VIAL IV PUSH SCH (10:16)
[2017-01-01] MEDS: HYDROCHLOROTHIAZIDE 25 MG TAB PO SCH (10:21)
[2017-01-01] MEDS: RIVAROXABAN 20 MG TAB PO SCH (10:21)
[2017-01-01] MEDS: DULoxetine HCl DR 60 MG CAP PO SCH (10:21)
[2017-01-01] MEDS: METOPROLOL TARTRATE 50 MG TAB PO SCH ×2 (10:22→22:22)
[2017-01-01] MEDS: PANTOPRAZOLE SOD 40 MG DELAYED RELEASE TAB PO SCH (10:22)
[2017-01-01] MEDS: MUPIROCIN 2% OINT 1 APPLIC/GM SYR NASAL SCH ×2 (10:25→22:22)
[2017-01-01] MEDS: SODIUM CHLORIDE 0.9% FLUSH 10 ML FLUSH IV FLUSH SCH ×2 (10:29→22:23)
[2017-01-01] MEDS ORDERED: HYDROCHLOROTHIAZIDE 25 MG TAB PO SCH (10:30)
--- NOTE | 2017-01-01 10:31 | HHI.PR ---
Subjective Remarks Patient seen and evaluated in follow-up for improving acute respiratory failure secondary to communicate or bacterial pneumonia. Also patient had metabolic encephalopathy which appears resolved. Objective Vitals Vital Signs Date Time Temp Pulse Resp B/P Pulse Ox O2 Delivery O2 Flow Rate FiO2 01/01/17 08:40 97 21 01/01/17 08:00 97.0 95 16 162/84 97 01/01/17 04:00 96.6 85 16 157/82 91 01/01/17 00:00 96.6 90 16 150/80 92 12/31/16 20:30 96 21 12/31/16 20:00 97.6 96 18 135/93 96 12/31/16 20:00 112 12/31/16 20:00 Room Air 12/31/16 15:54 97.4 103 20 142/78 91 12/31/16 13:54 18 12/31/16 13:30 144/82 12/31/16 12:15 98.8 98 20 162/103 93 12/31/16 12:00 102 12/31/16 12:00 104 20 179/87 94 12/31/16 11:00 112 27 186/91 95 I/O 12/31/16 12/31/16 12/31/16 01/01/17 01/01/17 01/01/17 06:59 14:59 22:59 06:59 14:59 22:59 Intake Total 617 ml 420 ml 420 ml Output Total 200 ml 2850 ml 400 ml 450 ml Balance -200 ml -2233 ml 20 ml -30 ml Intake Oral 480 ml 420 ml 420 ml IV Total 137 ml Output Urine Total 200 ml 2850 ml 400 ml 450 ml # Voids 2 # Bowel Movements 0 0 0 Result Diagram: 12/30/16 0410 12/30/16 0410 Imaging Last Impressions Chest X-Ray 12/29/16 1832 Signed Impressions: Service Date/Time: Thursday, December 29, 2016 18:47 - CONCLUSION: Mild pulmonary edema versus bibasilar pneumonia. Dany Hannah MD Pelvis X-Ray 12/29/16 0000 Signed Impressions: Service Date/Time: Thursday, December 29, 2016 19:26 - CONCLUSION: Radiographic appearance of the bony pelvis is within normal limits. Dany Hannah MD Head CT 12/29/16 0000 Signed Impressions: Service Date/Time: Thursday, December 29, 2016 21:04 - CONCLUSION: No acute intracranial abnormality. Dany Hannah MD Objective Remarks GENERAL: This is a well-nourished, well-developed patient, in no apparent distress. Mildly jaundiced CARDIOVASCULAR: Regular rate with atrial fibrillation without murmurs, gallops, or rubs. RESPIRATORY: Clear to auscultation. Breath sounds equal bilaterally. No wheezes , rales, or rhonchi. GASTROINTESTINAL: Abdomen soft, non-tender, nondistended. Normal active bowel sounds MUSCULOSKELETAL: Extremities without clubbing, cyanosis, or edema. NEURO: Alert & Oriented x4 to person, place, time, situation. Moves all ext x4 A/P Problem List: (1) Sepsis ICD Code: A41.9 Status: Acute Plan: Resolving sepsis secondary to kidney acquired bacterial pneumonia Currently afebrile, leukocytosis improved Hypoxemic respiratory failure resolved (2) Pneumonia ICD Code: J18.9 Status: Acute Plan: Continue with oral antibiotics (3) Atrial fibrillation with RVR ICD Code: I48.91 Status: Acute Plan: Currently resolved Continue with Xarelto and metoprolol Echocardiogram shows probable right sided heart failure and mild pulmonary hypertension (4) Hyperglycemia due to type 2 diabetes mellitus ICD Code: E11.65 Status: Acute Plan: Continue with insulin, sliding scale, ADA diet (5) Bilirubinemia ICD Code: E80.6 Status: Acute Plan: Likely related to acute pneumonia and severe sepsis Continue following trend (6) HTN (hypertension) ICD Code: I10 Status: Acute Plan: Patient's blood pressures a bit elevated, we'll resume her home hydrochlorothiazide and a lower dose lisinopril (patient on? 80 mg twice daily at home) Discharge Planning Home one to 2 days pending progress DC [facility] DC telemetry Patient on xarelto for DVT prophylaxis Problem Qualifiers (1) Sepsis: Qualified Code: A41.9 - Sepsis, due to unspecified organism (2) Pneumonia: Qualified Code: J18.9 - Pneumonia of both lower lobes due to infectious organism Hoa Underwood MD Jan 01, 2017 10:31
--- NOTE | 2017-01-01 10:32 | HHI.FF ---
Face to Face Verification Diagnosis: (1) HTN (hypertension) (2) Sepsis Home Health Nursing Order: Medical education Signs/symptoms of disease process Diabetic education I have seen patient Iva Ibanez on 01/01/17. My clinical findings support the need for the requested home health care services because: Deconditioned w/ increased weakness Med compliance is questionable I certify that my clinical findings support that this patient is homebound because: Unsteady gait/balance Poor cardiac reserve Hoa Underwood MD Jan 01, 2017 10:32
[2017-01-01] MEDS: LISINOPRIL 20 MG TAB PO SCH (19:56)
[2017-01-01] MEDS: INSULIN DETEMIR 100 UNITS/ML VIAL SQ SCH ×2 (21:00→22:26)
[2017-01-01] MEDS: MONTELUKAST SODIUM 10 MG TAB PO SCH (22:21)
[2017-01-01] MEDS: busPIRone HCL 5 MG TAB PO SCH (22:21)
[2017-01-02 01:47] VITALS: BP 136/80; PULSE 90; RESP 18; TEMP 98; O2SAT 96
[2017-01-02] MEDS: PIPERACIL-TAZO 3.375 GM PREMIX 50 ML IV SCH ×2 (02:58→08:56)
[2017-01-02] MEDS: CHLORHEXIDINE GLUCONATE 2 % 1 PACK (2 CLOTHS) TOP SCH (04:00)
[2017-01-02] MEDS: LOW DOSE INSULIN NOVOLOG SUPPLEMENTAL SCALE SQ SCH ×4 (07:00→21:00)
[2017-01-02 07:13] LABS: AUTOMATED NEUTROPHIL # 7.2 TH/MM3 (1.8-7.7); BASOPHIL % 0.5 % (0.0-2.0); EOSINOPHIL # 0.4 TH/MM3 (0-0.4); EOSINOPHIL % 4.2 % (0.0-4.0); HEMATOCRIT 43.8 % (35.0-46.0); HEMO FLAGS DIFF FINAL; LYMPH % 11.9 % (9.0-44.0); LYMPHOCYTE # 1.1 TH/MM3 (1.0-4.8); MEAN CELL VOLUME 83.9 FL (80.0-100.0); MEAN CORPUSCULAR HEMOGLOBIN 28.7 PG (27.0-34.0); MEAN CORPUSCULAR HGB CONC 34.2 % (32.0-36.0); MONO % 8.2 % (0.0-8.0); NEUT % 75.2 % (16.0-70.0); PLATELET COUNT 257 TH/MM3 (150-450); RED BLOOD COUNT 5.22 MIL/MM3 (4.00-5.30); RED CELL DISTRIBUTION WIDTH 13.2 % (11.6-17.2); WHITE BLOOD COUNT 9.5 TH/MM3 (4.0-11.0)
[2017-01-02 07:41] LABS: ALKALINE PHOSPHATASE 91 U/L (45-117); ALT (GPT) 16 U/L (10-53); ANION GAP 13 MEQ/L (5-15); AST (GOT) 16 U/L (15-37); BICARBONATE 28.8 MEQ/L (21.0-32.0); BLOOD UREA NITROGEN 19 MG/DL (7-18); CHLORIDE 93 MEQ/L (98-107); GLOMERULAR FILTRATION RATE 49 ML/MIN (>89); SODIUM (NA) 135 MEQ/L (136-145); TOTAL BILIRUBIN ADULT 1.8 MG/DL (0.2-1.0)
[2017-01-02 07:50] LABS: POTASSIUM 2.4 MEQ/L (3.5-5.1)
[2017-01-02 08:21] LABS: MAGNESIUM 1.8 MG/DL (1.5-2.5)
[2017-01-02 08:24] LABS: POTASSIUM 2.6 MEQ/L (3.5-5.1)
[2017-01-02 08:29] VITALS: BP 153/88; PULSE 95; RESP 19; TEMP 96.8; O2SAT 94
[2017-01-02] MEDS ORDERED: POTASSIUM CHLORIDE 10 MEQ CONTROLLED RELEASE TAB PO ONE (08:45)
[2017-01-02] MEDS ORDERED: MAGNESIUM SULFATE 1 GM PREMIX 100 ML IV ONE (08:45)
[2017-01-02] MEDS: AZITHROMYCIN INJ 500 MG in SODIUM CHLOR 0.9% 250 ML INJ 250 ML IV SCH (08:56)
[2017-01-02] MEDS: HYDROCHLOROTHIAZIDE 25 MG TAB PO SCH (09:02)
[2017-01-02] MEDS: RIVAROXABAN 20 MG TAB PO SCH (09:02)
[2017-01-02] MEDS: METOPROLOL TARTRATE 50 MG TAB PO SCH ×2 (09:02→21:36)
[2017-01-02] MEDS: PANTOPRAZOLE SOD 40 MG DELAYED RELEASE TAB PO SCH (09:03)
[2017-01-02] MEDS: MUPIROCIN 2% OINT 1 APPLIC/GM SYR NASAL SCH ×2 (09:04→21:00)
[2017-01-02] MEDS: SODIUM CHLORIDE 0.9% FLUSH 10 ML FLUSH IV FLUSH SCH ×2 (09:04→21:00)
[2017-01-02] MEDS: DULoxetine HCl DR 60 MG CAP PO SCH (09:10)
[2017-01-02] MEDS: LISINOPRIL 20 MG TAB PO SCH (09:11)
--- NOTE | 2017-01-02 10:19 | HHI.PR ---
Subjective Remarks Patient seen today in follow-up for pneumonia with sepsis which is resolved. Patient is with severe hypokalemia today which will need to to follow Patient complaining of some nausea and vomiting this morning which resolved itself. Blood sugar in the 70s today Objective Vitals Vital Signs Date Time Temp Pulse Resp B/P Pulse Ox O2 Delivery O2 Flow Rate FiO2 01/02/17 08:29 96.8 95 19 153/88 94 01/02/17 04:57 01/02/17 01:47 98.0 90 18 136/80 96 01/01/17 21:34 97.7 111 18 144/79 94 01/01/17 20:40 98 21 01/01/17 20:00 Room Air 01/01/17 16:00 97.8 106 18 152/85 96 01/01/17 12:00 97.5 94 18 130/72 98 I/O 01/01/17 01/01/17 01/01/17 01/02/17 01/02/17 01/02/17 07:00 15:00 23:00 07:00 15:00 23:00 Intake Total 420 ml 530 ml 370 ml Output Total 450 ml 1700 ml 550 ml Balance -30 ml -1170 ml 370 ml -550 ml Intake Oral 420 ml 530 ml IV Total 370 ml Output Urine Total 450 ml 1700 ml 550 ml # Voids 2 2 # Bowel Movements 0 1 0 Result Diagram: 01/02/17 0653 01/02/17 0802 Objective Remarks GENERAL: This is a well-nourished, well-developed patient, in no apparent distress. Jaundiced this improved CARDIOVASCULAR: Regular rate with atrial fibrillation without murmurs, gallops, or rubs. RESPIRATORY: Clear to auscultation. Breath sounds equal bilaterally. No wheezes , rales, or rhonchi. GASTROINTESTINAL: Abdomen soft, non-tender, nondistended. Normal active bowel sounds MUSCULOSKELETAL: Extremities without clubbing, cyanosis, or edema. NEURO: Alert & Oriented x4 to person, place, time, situation. Moves all ext x4 A/P Problem List: (1) Sepsis ICD Code: A41.9 Status: Resolved Plan: Resolving sepsis secondary to community-acquired bacterial pneumonia Currently afebrile, leukocytosis improved Hypoxemic respiratory failure resolved (2) Pneumonia ICD Code: J18.9 Status: Acute Plan: Continue with oral antibiotics (3) Atrial fibrillation with RVR ICD Code: I48.91 Status: Acute Plan: Currently resolved Continue with Xarelto and metoprolol Echocardiogram shows probable right sided heart failure and mild pulmonary hypertension (4) Hyperglycemia due to type 2 diabetes mellitus ICD Code: E11.65 Status: Acute Plan: Continue with insulin, sliding scale, ADA diet (5) Bilirubinemia ICD Code: E80.6 Status: Acute Plan: Likely related to acute pneumonia and severe sepsis Improved (6) HTN (hypertension) ICD Code: I10 Status: Acute Plan: Patient's blood pressures a bit elevated, we'll resume her home hydrochlorothiazide and a lower dose lisinopril (7) Hypokalemia ICD Code: E87.6 Status: Acute Plan: Replace and follow Discharge Planning Home likely in a.m. Patient on xarelto for DVT prophylaxis Problem Qualifiers (1) Sepsis: Qualified Code: A41.9 - Sepsis, due to unspecified organism (2) Pneumonia: Qualified Code: J18.9 - Pneumonia of both lower lobes due to infectious organism Hoa Underwood MD Jan 02, 2017 10:19
[2017-01-02] MEDS ORDERED: AUGM500T7 PO (10:22)
[2017-01-02] MEDS ORDERED: AZIT500T2 PO (10:22)
[2017-01-02] MEDS: CHLORHEXIDINE 0.12% (ORAL KIT) 15 ML CUP MT SCH ×2 (12:10→20:00)
[2017-01-02 12:38] VITALS: BP 124/82; PULSE 91; RESP 19; TEMP 96.8; O2SAT 94
[2017-01-02] MEDS: POTASSIUM CHLOR 20 MEQ PREMIX 100 ML IV SCH ×2 (13:24→16:34)
[2017-01-02 16:58] VITALS: BP 150/99; PULSE 108; RESP 19; TEMP 97.2; O2SAT 95
[2017-01-02 20:56] VITALS: BP 160/87; PULSE 115; RESP 20; TEMP 98; O2SAT 97
[2017-01-02] MEDS: AMOXICILLIN/CLAVULANATE K 500 MG TAB PO SCH (21:00)
[2017-01-02] MEDS: MONTELUKAST SODIUM 10 MG TAB PO SCH (21:36)
[2017-01-02] MEDS: busPIRone HCL 5 MG TAB PO SCH (21:36)
[2017-01-02] MEDS: INSULIN DETEMIR 100 UNITS/ML VIAL SQ SCH (21:40)
[2017-01-03 00:33] VITALS: BP 135/75; PULSE 95; RESP 22; TEMP 98.3; O2SAT 96
[2017-01-03] MEDS: CHLORHEXIDINE GLUCONATE 2 % 1 PACK (2 CLOTHS) TOP SCH (04:00)
[2017-01-03] MEDS: LOW DOSE INSULIN NOVOLOG SUPPLEMENTAL SCALE SQ SCH ×2 (06:26→11:00)
--- NOTE | 2017-01-03 06:58 | HHI.DCPOC ---
Discharge Care Plan Diagnosis: (1) Sepsis (2) Metabolic encephalopathy (3) Pneumonia Goals to Promote Your Health * To prevent worsening of your condition and complications * To maintain your health at the optimal level Directions to Meet Your Goals Take your medications as prescribed Follow your dietary instruction Follow activity as directed Keep your appointments as scheduled Take your immunizations and boosters as scheduled If your symptoms worsen call your PCP, if no PCP go to Urgent Care Center or Emergency Room Smoking is Dangerous to Your Health. Avoid second hand smoke Call the 24-hour hour crisis hotline for domestic abuse at Hoa Underwood MD Jan 03, 2017 06:58
--- NOTE | 2017-01-03 07:03 | HHI.DS ---
cc: Randy Rabago Discharge Summary Admission Date Dec 29, 2016 at 20:39 Discharge Date: Jan 03, 2017 Admitting Diagnosis sepsis, pneumonia, A. fib with RVR, hypoxia (1) Sepsis ICD Code: A41.9 Diagnosis: Principal (2) Pneumonia ICD Code: J18.9 Diagnosis: Principal (3) Atrial fibrillation with RVR ICD Code: I48.91 (4) Hyperglycemia due to type 2 diabetes mellitus ICD Code: E11.65 (5) Bilirubinemia ICD Code: E80.6 (6) HTN (hypertension) ICD Code: I10 (7) Hypokalemia ICD Code: E87.6 Procedures none Brief History - From Admission Patient is a 71-year-old white female with past medical history significant for atrial fibrillation on chronic Xarelto, type 2 diabetes, psoriatic arthritis, who presented to the emergency department and was found in the parking lot confused and febrile. She was febrile with an oral temp of 103F with Heart rate in 150s with atrial fibrillation with RVR. In the ER became extremely short of breath after receiving 2 L normal saline bolus for presumed sepsis. She had bibasilar rales. O2 saturation was 85% on 2 L nasal cannula. She was placed on BiPAP for suspected pulmonary edema. She was given 10 mg of IV Cardizem with improvement in heart rate. she was admitted to the ICU CBC/BMP: 01/02/17 0653 01/02/17 0802 Significant Findings Laboratory Tests Test 01/02/17 01/02/17 06:53 08:02 Neutrophils (%) (Auto) 75.2 % (16.0-70.0) Monocytes (%) (Auto) 8.2 % (0.0-8.0) Eosinophils (%) (Auto) 4.2 % (0.0-4.0) Sodium Level 135 MEQ/L (136-145) Potassium Level 2.4 MEQ/L 2.6 MEQ/L (3.5-5.1) (3.5-5.1) Chloride Level 93 MEQ/L (98-107) Blood Urea Nitrogen 19 MG/DL (7-18) Creatinine 1.10 MG/DL (0.50-1.00) Estimat Glomerular Filtration 49 ML/MIN (>89) Rate Random Glucose 153 MG/DL (74-106) Total Bilirubin 1.8 MG/DL (0.2-1.0) Albumin 3.0 GM/DL (3.4-5.0) Imaging Last Impressions Chest X-Ray 12/29/16 1832 Signed Impressions: Service Date/Time: Thursday, December 29, 2016 18:47 - CONCLUSION: Mild pulmonary edema versus bibasilar pneumonia. Dany Hannah MD Pelvis X-Ray 12/29/16 0000 Signed Impressions: Service Date/Time: Thursday, December 29, 2016 19:26 - CONCLUSION: Radiographic appearance of the bony pelvis is within normal limits. Dany Hannah MD Head CT 12/29/16 0000 Signed Impressions: Service Date/Time: Thursday, December 29, 2016 21:04 - CONCLUSION: No acute intracranial abnormality. Dany Hannah MD PE at Discharge GENERAL: This is a well-nourished, well-developed patient, in no apparent distress. Jaundiced this improved CARDIOVASCULAR: Regular rate with atrial fibrillation without murmurs, gallops, or rubs. RESPIRATORY: Clear to auscultation. Breath sounds equal bilaterally. No wheezes , rales, or rhonchi. GASTROINTESTINAL: Abdomen soft, non-tender, nondistended. Normal active bowel sounds MUSCULOSKELETAL: Extremities without clubbing, cyanosis, or edema. NEURO: Alert & Oriented x4 to person, place, time, situation. Moves all ext x4 Pt update on day of discharge DOing better today Ambulated, Voiding DC plans discussed with patient Hospital Course Patient was treated for pulmonary edema and hypoxic respiratory failure from pneumonia. She required bipap and diuresis and IV abx She recovered and was discharged Pt Condition on Discharge: Good Discharge Disposition: Disch w/ Home Health Serv Discharge Time: > 30 minutes Discharge Instructions DIET: Follow Instructions for: Diabetic Diet Activities you can perform: Regular-No Restrictions Follow up Referrals: PCP Follow-up - 1 Week New Medications: Amoxicillin-Clavulanate (Augmentin) 500-125 mg Tab 500 MG PO BID Infection #6 Ref 0 TAB Azithromycin (Azithromycin) 500 Mg Tab 500 MG PO DAILY Infection #3 Ref 0 TAB Continued Medications: Buspirone (Buspirone) 15 Mg Tab 15 MG PO HS Anxiety Ref 0 TAB Clonidine (Catapres) 0.1 Mg Tab 0.1 MG PO Q6H PRN SYS BP GREATER THAN 160 MMHG #[address] (Cymbalta DR) 60 Mg Capdr 60 MG PO DAILY #30 Ref 0 CAP Gabapentin (Gabapentin) 300 Mg Cap 900 MG PO BID #90 Ref 0 CAP Hydrochlorothiazide (Hydrochlorothiazide) 25 Mg Tab 25 MG PO DAILY #30 Ref 0 TAB Insulin Detemir Inj (Levemir Inj) 1,000 unit/ 10 ML Vial 14 UNITS SQ HS Do not mix with any other Insulin. Blood Sugar Management Ref 0 VIAL Insulin Lispro (Human) Inj (Humalog Kwikpen Pen Inj) 600 Unit/3 Ml Pen 1 UNITS SQ DIRECTED Blood Sugar Management Ref 0 PEN Metoprolol Tartrate (Metoprolol Tartrate) 50 Mg Tab 50 MG PO DAILY #60 Ref 0 TAB Metoprolol Tartrate (Metoprolol Tartrate) 50 Mg Tab 100 MG PO HS #60 Ref 0 TAB Montelukast (Singulair) 10 Mg Tab 10 MG PO HS #30 Ref 0 TAB Oxycodone-Acetaminophen (Percocet) 10-325 mg Tab 1 TAB PO Q6H PRN PAIN Ref 0 TAB Rivaroxaban (Xarelto) 20 Mg Tab 20 MG PO DAILY Blood Clot Prevention Ref 0 TAB ([qdall AR]) 4 MG PO HS Discontinued Medications: Lisinopril (Lisinopril) 40 Mg Tab 80 MG PO BID Blood Pressure Management #30 Ref 0 TAB Minocycline (Minocin) 50 Mg Cap 50 MG PO BID Mgmt Bacterial Infection Ref 0 CAP Hoa Underwood MD Jan 03, 2017 07:03
[2017-01-03 08:00] VITALS: BP 157/77; PULSE 102; RESP 18; TEMP 97.6; O2SAT 98
[2017-01-03] MEDS: CHLORHEXIDINE 0.12% (ORAL KIT) 15 ML CUP MT SCH (08:00)
[2017-01-03] MEDS: RIVAROXABAN 20 MG TAB PO SCH (09:00)
[2017-01-03] MEDS: METOPROLOL TARTRATE 50 MG TAB PO SCH (09:00)
[2017-01-03] MEDS: HYDROCHLOROTHIAZIDE 25 MG TAB PO SCH (09:00)
[2017-01-03] MEDS: DULoxetine HCl DR 60 MG CAP PO SCH (09:00)
[2017-01-03] MEDS: SODIUM CHLORIDE 0.9% FLUSH 10 ML FLUSH IV FLUSH SCH (09:00)
[2017-01-03] MEDS: MUPIROCIN 2% OINT 1 APPLIC/GM SYR NASAL SCH (09:00)
[2017-01-03] MEDS: PANTOPRAZOLE SOD 40 MG DELAYED RELEASE TAB PO SCH (09:00)
[2017-01-03] MEDS ORDERED: AZITHROMYCIN 250 MG TAB PO SCH (09:00)
[2017-01-03] MEDS: AMOXICILLIN/CLAVULANATE K 500 MG TAB PO SCH (09:00)
[2017-01-03] MEDS: LISINOPRIL 20 MG TAB PO SCH (09:00)
[2017-01-03 12:00] VITALS: BP 141/69; PULSE 100; RESP 18; TEMP 96.9; O2SAT 97
== END 2017-01-03 15:07 | disposition home health service (06) | DRG 871 ==
LOC: PHED 18:12 → PHEDA 20:39 → PHICU 22:50 → PH3A 12-31 12:15
PROVIDERS: ADMIT Hospitalist; ATTEND Hospitalist
PROC: 5A09357 Assistance with Respiratory Ventilation, Less than 24 Consecutive Hours, Continuous Positive Airway Pressure (ICD-10-PCS; principal; 2016-12-29)
DX: A41.9 Sepsis, unspecified organism (principal); J96.01 Acute respiratory failure with hypoxia; G93.41 Metabolic encephalopathy; J15.9 Unspecified bacterial pneumonia; I11.0 Hypertensive heart disease with heart failure; I27.2 Other secondary pulmonary hypertension; E11.65 Type 2 diabetes mellitus with hyperglycemia; I50.9 Heart failure, unspecified; R17 Unspecified jaundice; E11.40 Type 2 diabetes mellitus with diabetic neuropathy, unspecified; G89.29 Other chronic pain; L40.50 Arthropathic psoriasis, unspecified; R00.0 Tachycardia, unspecified; I48.2 Chronic atrial fibrillation; M54.5 Low back pain; Z96.653 Presence of artificial knee joint, bilateral; E78.00 Pure hypercholesterolemia, unspecified; E87.6 Hypokalemia; J45.909 Unspecified asthma, uncomplicated; K21.9 Gastro-esophageal reflux disease without esophagitis; M79.7 Fibromyalgia; R65.20 Severe sepsis without septic shock; Z86.73 Personal history of transient ischemic attack (TIA), and cerebral infarction without residual deficits; Z79.01 Long term (current) use of anticoagulants; Z79.4 Long term (current) use of insulin
CPT/HCPCS: 51702; 70450; 71010; 72170; 80053; 81001; 82550; 82552; 82948; 83605; 83735; 83880; 84132; 84484; 85025; 85610; 85730; 87040; 87449; 87641; 87804; 93005; 93306; 94002; 96361; 96365; 96374; C9113; J0456; J1815; J1940; J2543; J3370; J3475; J3480; J7030; J7050

== ENCOUNTER 2017-08-06 23:19 | Emergency (ER) | payer MEDICARE ==
[~2017-08-06] VITALS: Ht 160 cm; Wt 80.0 kg
[~2017-08-06 23:19] MED LIST changes: +AUGM500T7 PO; +AZIT500T2 PO; -HYDR12.57 PO; +HYDR25TA5 PO; +INSU10IN SQ; -LISI40TA PO; -LOVA10TA PO; -MINO0.1C PO; +[UNRECOGNIZED DRUG - OTHER] PO
[2017-08-06 23:28] VITALS: BP 163/78; PULSE 92; RESP 16; TEMP 98.2; O2SAT 97
--- NOTE | 2017-08-07 00:01 | PD ---
HPI Chief Complaint: Fall Time Seen by Provider: 23:43 Travel History International Travel<30 days: No Contact w/Intl Traveler<30days: No Traveled to known affect area: No History of Present Illness HPI 72-year-old female presents to the emergency department for complaint of posterior head pain after a non-syncopal slip and fall. Patient does take Xarelto. 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 Patient denies any balance disturbance. Patient states she did not lose consciousness no seizure activity and denies any neck pain. Patient denies any preceding dizziness lightheadedness visual disturbance confusion chest pain palpitations shortness breath nausea vomiting sweats or referred new upper or lower extremity numbness tingling or weakness. Patient denies any recent febrile illness. PFSH Past Medical History Hx Anticoagulant Therapy: Yes Arthritis: Yes Asthma: Yes Atrial Fibrillation: Yes Heart Rhythm Problems: Yes (AFIB) Cancer: No Cardiac Catheterization: No Cardiovascular Problems: Yes (afibfor many years) High Cholesterol: Yes Chest Pain: Yes (this morning) COPD: No Cerebrovascular Accident: Yes (1 WEEK AGO) Diabetes: Yes (>5<10 years) Diminished Hearing: No Endocrine: Yes Fibromyalgia: Yes Gastrointestinal Disorders: Yes (occas heartburn) GERD: Yes (takes prilosec) Genitourinary: Yes (OVER ACTIVE BLADDER, incontinence) Hepatitis: No Hiatal Hernia: No Hypertension: Yes Immune Disorder: Yes (rheumatoid & psoric & osteo arthritis) Implanted Vascular Access Dvce: Yes Kidney Stones: No Musculoskeletal: Yes (arthritis neck and back problems due to arthritis) Neurologic: Yes (BL NEUROPATHY FEET) Psychiatric: No Reproductive: Yes (HX FIBROIDS) Respiratory: Yes Immunizations Current: No Migraines: Yes (OCCASIONAL) Renal Failure: No Seizures: No Thyroid Disease: No Ulcer: No Menopausal: Yes Ovarian Cysts: Yes Past Surgical History Abdominal Surgery: Yes (lap curt, APPENDECTOMY) AICD: No Cardiac Surgery: No Cholecystectomy: Yes Coronary Artery Bypass Graft: No Ear Surgery: No Endocrine Surgery: No Eye Surgery: Yes (CATARACT BOTH EYES ) Genitourinary Surgery: No Gynecologic Surgery: Yes (HYSTERECTOMY) Hysterectomy: Yes Joint Replacement: Yes (BL KNEES R knee is titanium) Neurologic Surgery: Yes Oral Surgery: Yes (TONSILLECTOMY, teeth removed ) Pacemaker: No Thoracic Surgery: No Social History Alcohol Use: No Tobacco Use: No Substance Use: No Allergies-Medications (Allergen,Severity, Reaction): Coded Allergies: amcinonide (Unverified Allergy, Severe, ANAPHYLAXIS, 08/06/17) anaphylaxis beclomethasone (Unverified Allergy, Severe, ANAPHYLAXIS, 08/06/17) anaphylaxis betamethasone (Unverified Allergy, Severe, ANAPHYLAXIS, 08/06/17) anaphylaxis cefepime (Unverified Allergy, Severe, ANAPHYLAXIS, 08/06/17) anaphylaxis ceftaroline fosamil (Unverified Allergy, Severe, ANAPHYLAXIS, 08/06/17) anaphylaxis cephalexin (Unverified Allergy, Severe, ANAPHYLAXIS, 08/06/17) anaphylaxis desoximetasone (Unverified Allergy, Severe, ANAPHYLAXIS, 08/06/17) anaphylaxis dexamethasone (Unverified Allergy, Severe, ANAPHYLAXIS, 08/06/17) unknown fludrocortisone (Unverified Allergy, Severe, ANAPHYLAXIS, 08/06/17) anaphylaxis flunisolide (Unverified Allergy, Severe, ANAPHYLAXIS, 08/06/17) anaphylaxis fluocinolone acetonide (Unverified Allergy, Severe, ANAPHYLAXIS, 08/06/17) anaphylaxis fluocinonide (Unverified Allergy, Severe, ANAPHYLAXIS, 08/06/17) anaphylaxis fluorometholone (Unverified Allergy, Severe, ANAPHYLAXIS, 08/06/17) anaphylaxis flurandrenolide (Unverified Allergy, Severe, ANAPHYLAXIS, 08/06/17) anaphylaxis fluticasone (Unverified Allergy, Severe, ANAPHYLAXIS, 08/06/17) anaphylaxis fluticasone furoate (Unverified Allergy, Severe, ANAPHYLAXIS, 08/06/17) anaphylaxis hydrocortisone (Unverified Allergy, Severe, ANAPHYLAXIS, 08/06/17) anaphylaxis methylprednisolone (Unverified Allergy, Severe, ANAPHYLAXIS, 08/06/17) anaphylaxis mometasone furoate (Unverified Allergy, Severe, ANAPHYLAXIS, 08/06/17) anaphylaxis prednisolone (Unverified Allergy, Severe, ANAPHYLAXIS, 08/06/17) anaphylaxis prednisone (Unverified Allergy, Severe, ANAPHYLAXIS, 08/06/17) anaphylaxis pregabalin (Unverified Allergy, Severe, goes blind, 08/06/17) triamcinolone (Unverified Allergy, Severe, ANAPHYLAXIS, 08/06/17) anaphylaxis Pork/Porcine Containing Products (Unverified Allergy, Mild, Itching, ) aspirin (Unverified Allergy, Mild, GI UPSET, 08/06/17) gi upset diatrizoate meglumine (Unverified Allergy, Mild, Itching, 08/06/17) has to be pre-medicated first gadobenic acid (Unverified Allergy, Mild, Itching, 08/06/17) has to be pre-medicated first gadodiamide (Unverified Allergy, Mild, Itching, 08/06/17) has to be pre-medicated first gadoteridol (Unverified Allergy, Mild, Itching, 08/06/17) has to be pre-medicated first iodine (Unverified Allergy, Mild, Itching, 08/06/17) topical iodine causes itching iodixanol (Unverified Allergy, Mild, Itching, 08/06/17) has to be pre-medicated first iohexol (Unverified Allergy, Mild, Itching, 08/06/17) has to be pre-medicated first potassium iodide (Unverified Allergy, Mild, Itching, 08/06/17) topical iodine causes itching povidone-iodine (Unverified Allergy, Mild, Itching, 08/06/17) topical iodine causes itching sodium iodide (Unverified Allergy, Mild, Itching, 08/06/17) topical iodine causes itching sodium iodide (Unverified Allergy, Mild, Itching, 08/06/17) topical iodine causes itching Uncoded Allergies: INJECTABLE STEROIDS (Allergy, Severe, Anaphylaxis, 02/03/06) Reported Meds & Prescriptions Reported Meds & Active Scripts Active Reported Humalog Kwikpen Pen Inj (Insulin Lispro (Human) Inj) 600 Unit/3 Ml Pen 1 Units SQ DIRECTED Hydrochlorothiazide 25 Mg Tab 25 Mg PO DAILY Levemir Inj (Insulin Detemir) 1,000 unit/ 10 ML Vial 14 Units SQ HS Do not mix with any other Insulin. Metoprolol Tartrate 50 Mg Tab 100 Mg PO HS [qdall AR] 4 Mg PO HS Singulair (Montelukast Sodium) 10 Mg Tab 10 Mg PO HS Percocet (Oxycodone-Acetaminophen) 10-325 mg Tab 1 Tab PO Q6H PRN Cymbalta DR (Duloxetine HCl) 60 Mg Capdr 60 Mg PO DAILY Xarelto (Rivaroxaban) 20 Mg Tab 20 Mg PO DAILY Metoprolol Tartrate 50 Mg Tab 50 Mg PO DAILY Gabapentin 300 Mg Cap 900 Mg PO BID Buspirone (Buspirone HCl) 15 Mg Tab 15 Mg PO HS Review of Systems Except as stated in HPI: all other systems reviewed are Neg Physical Exam Narrative GENERAL: Well-developed well-nourished female no acute distress or respiratory distress GCS is 15 patient is alert and oriented to person place time and events SKIN: Warm and dry. HEAD: Atraumatic. Normocephalic. Scalp posterior occiput small hematoma no active abrasion or bleeding bony abnormality EYES: Pupils equal and round. No scleral icterus. No injection or drainage. ENT: No nasal bleeding or discharge. Mucous membranes pink and moist. NECK: Trachea midline. No JVD. No midline tenderness to direct palpation along the cervical spine no bony step-off CARDIOVASCULAR: Regular rate and rhythm. RESPIRATORY: No accessory muscle use. Clear to auscultation. Breath sounds equal bilaterally. GASTROINTESTINAL: Abdomen soft, non-tender, nondistended. Hepatic and splenic margins not palpable. MUSCULOSKELETAL: Extremities without clubbing, cyanosis, or edema. No obvious deformities. NEUROLOGICAL: Awake and alert. No obvious cranial nerve deficits. Motor grossly within normal limits. Five out of 5 muscle strength in the arms and legs. Normal speech. PSYCHIATRIC: Appropriate mood and affect; insight and judgment normal. Data Data Last Documented VS Vital Signs Date Time Temp Pulse Resp B/P (MAP) Pulse Ox O2 Delivery O2 Flow Rate FiO2 08/07/17 02:10 08/07/17 01:45 101 16 97 Room Air 08/06/17 23:[address] Brain W/O Iv Contrast(Rout) (08/06/17 ) Ed Discharge Order (08/07/17 01:56) MDM Medical Decision Making Medical Screen Exam Complete: Yes Emergency Medical Condition: Yes Medical Record Reviewed: Yes Interpretation(s) Last Impressions Head CT 08/06/17 0000 Signed Impressions: Service Date/Time: Monday, August 07, 2017 00:50 - CONCLUSION: Stable negative noncontrast head CT. Blair Davison MD Vital Signs Date Time Temp Pulse Resp B/P (MAP) Pulse Ox O2 Delivery O2 Flow Rate FiO2 08/06/17 23:30 Room Air 08/06/17 23:28 98.2 92 16 163/78 (338) 47 Differential Diagnosis Head injury, intracranial bleed, skull fracture Narrative Course Patient with recent fall non-syncopal with posterior occiput hematoma on Xarelto CT brain noncontrast no skull fracture no intracranial bleed Diagnosis Primary Impression: Minor closed head injury Referrals: Primary Care Physician 2 days Patient Instructions: General Instructions Additional Instructions: Follow head injury precautions 24 hours Use ice pack intermittently to posterior scalp for soft tissue swelling and discomfort May take acetaminophen/Tylenol as tolerated for minor discomfort or for fever 100.4F or greater Return to the emergency department for any concerns or change in condition Follow-up with your primary care provider call office on Wednesday Med/Other Pt SpecificInfo: Existing Med Changed Disposition: 01 DISCHARGE HOME Condition: Stable Flor Long MD Aug 07, 2017 00:01
--- NOTE | 2017-08-07 01:05 | RADRPT ---
EXAM DATE/TIME: 08/07/2017 00:50 [facility] COMPARISON: CT BRAIN W/O CONTRAST, December 29, 2016, 21:04. INDICATIONS : Fell hitting back of head. RADIATION DOSE: 65.19 CTDIvol (mGy) MEDICAL HISTORY : Cerebrovascular disease. Hypertension. Gastroesophageal reflux disease. SURGICAL HISTORY : Appendectomy. Cholecystectomy.Hysterectomy. ENCOUNTER: Initial ACUITY: 1 day PAIN SCALE: 6/10 LOCATION: cranial TECHNIQUE: Multiple contiguous axial images were obtained of the head. Using automated exposure control and adj ustment of the mA and/or kV according to patient size, radiation dose was kept as low as reasonably a chievable to obtain optimal diagnostic quality images. DICOM format image data is available electro nically for review and comparison. FINDINGS: CEREBRUM: The ventricles are normal for age. No evidence of midline shift, mass lesion, hemorrhage or acute in farction. No extra-axial fluid collections are seen. POSTERIOR FOSSA: The cerebellum and brainstem are intact. The 4th ventricle is midline. The cerebellopontine angle i s unremarkable. EXTRACRANIAL: The visualized portion of the orbits is intact. SKULL: The calvaria is intact. No evidence of skull fracture. CONCLUSION: Stable negative noncontrast head CT. Blair Davison MD on August 07, 2017 at 1:01 Board Certified Radiologist. This report was verified electronically.
[2017-08-07 01:45] VITALS: BP 168/80; PULSE 101; RESP 16; O2SAT 97
== END 2017-08-07 02:11 | disposition home or self-care (01) ==
LOC: PHED 23:19
DX: S09.90XA Unspecified injury of head, initial encounter (principal); S00.03XA Contusion of scalp, initial encounter; W01.0XXA Fall on same level from slipping, tripping and stumbling without subsequent striking against object, initial encounter; I10 Essential (primary) hypertension; I48.91 Unspecified atrial fibrillation; E11.9 Type 2 diabetes mellitus without complications; K21.9 Gastro-esophageal reflux disease without esophagitis; E78.00 Pure hypercholesterolemia, unspecified; J45.909 Unspecified asthma, uncomplicated; Z79.01 Long term (current) use of anticoagulants; Z79.4 Long term (current) use of insulin; Z87.39 Personal history of other diseases of the musculoskeletal system and connective tissue; Z87.448 Personal history of other diseases of urinary system; Z86.69 Personal history of other diseases of the nervous system and sense organs
CPT/HCPCS: 70450; 99283